=== PATIENT | male | born 1950 | race Caucasian/White ===

== ENCOUNTER 2021-01-24 19:19 | Inpatient (IN) | payer OTHER, SELFPAY ==
[2021-01-24] VITALS (29 sets, daily range): BP systolic 151–180; BP diastolic 76–93; PULSE 60–100; RESP 12–26; TEMP 36.3; O2SAT 96–100
--- NOTE | ~2021-01-24 | MR_ITS ---
EXAMINATION: MR brain/brain stem wo/w con DATE: 01/25/2021 10:22 INDICATION: Ataxia. TECHNIQUE: Magnetic resonance imaging (MRI) of the brain and brainstem was performed without and with 19 mL MultiHance intravenous contrast. Sequences included sagittal and axial T1-weighted FSE, axial diffusion-weighted FS EPI, axial T2*-weighted GRE, axial T2-weighted FLAIR Propeller, and axial T2-we ighted Propeller. Postcontrast sequences included axial and coronal T1-weighted FSE. Apparent diffusi on coefficient (ADC) maps were created. COMPARISON: Head CT 01/24/2021 FINDINGS: There are acute infarcts in the cerebellum bilaterally. There are scattered acute infarcts in the left sara, right thalamus, and bilateral temporal and occipital lobes. There is no intracrania l hemorrhage or abnormal mass lesion. There are scattered areas of nonspecific increased T2-weighted signal intensity in the cerebral white matter, which is within normal limits for the patient's age. T he ventricles are normal in size. There is cavum septum pellucidum and vergae. The orbits are normal. There is mucosal thickening in the paranasal sinuses. The mastoid air cells are normal. IMPRESSION: 1. Scattered acute infarcts involving the cerebellum, left sara, right thalamus, and bilateral tempor al and occipital lobes. Reviewed, dictated and finalized at location A. IMPRESSION: 1. Scattered acute infarcts involving the cerebellum, left sara, right thalamus , and bilateral temporal and occipital lobes.
--- NOTE | ~2021-01-24 | XR_ITS ---
XR chest 2V 01/24/2021 20:48 Indication: Hypertension. Asthma. Procedure: PA and lateral views of the chest Comparison: No prior studies for comparison. Findings: Left basilar atelectasis. Heart size normal. No focal pneumonia, edema, pleural effusion or pneumothorax. No acute osseous abnormality. Impression: 1: Left basilar atelectasis. Reviewed, dictated and finalized at location A. Impression: 1: Left basilar atelectasis.
--- NOTE | ~2021-01-24 | CT_ITS ---
EXAMINATION: CT brain wo con DATE: 01/24/2021 20:29 INDICATION: Left upper extremity numbness and dizziness TECHNIQUE: Computed tomography (CT) of the head was performed without intravenous contrast. The dose- length product was 681.00 mGy-cm. Automated exposure control and iterative reconstruction technique w ere employed. COMPARISON: None FINDINGS: There is a chronic left cerebellar infarction. Right parenchymal volume is normal for age. There are scattered mild periventricular and subcortical white matter changes, most likely related to small vessel ischemic disease (microangiopathy). No ventriculomegaly or midline shift. There is intr acranial atherosclerosis. Mild mucosal thickening of the ethmoid sinuses. Mastoids are pneumatized. N o depressed skull fractures. No acute intracranial hemorrhage or infarction. IMPRESSION: 1. No acute intracranial abnormality. 2: Chronic left cerebellar infarction. 3: Chronic age-related findings. Reviewed, dictated and finalized at location A.
--- NOTE | ~2021-01-24 | CT_ITS ---
EXAMINATION: CTA brain carotid DATE: 01/25/2021 10:42 INDICATION: Acute brain infarct. TECHNIQUE: Computed tomographic angiography (CTA) of the head was performed without and with 100 mL O mnipaque-350 intravenous contrast. CTA of the neck was performed with intravenous contrast. Automated exposure control and iterative reconstruction technique were employed. The dose-length product was 1 729.91 mGy-cm. Maximum intensity projection and volume rendered 3D-reconstructions were created by mynor morillo technologist on a separate workstation. COMPARISON: Brain MRI 01/25/2021 FINDINGS: HEAD CTA: There are acute infarcts in the left cerebellum and right temporal occipital region. There is no intracranial hemorrhage or abnormal mass lesion. The ventricles are normal in size. Cavum septu m callosum and vergae are noted. The orbits are normal. There is mucosal thickening in the paranasal sinuses. The mastoid air cells are normal. The vertebral arteries are codominant. There is no signifi cant stenosis of basilar artery or the posterior cerebral arteries. There is no significant stenosis of the intracranial internal carotid arteries or anterior or middle cerebral arteries. Anterior commu nicating artery is normal. Posterior communicating arteries are not identified. There is no aneurysm. NECK CTA: There are no pathologically enlarged lymph nodes. There is no significant stenosis of the v ertebral arteries. There is plaque in the proximal internal carotid arteries. There is 0% stenosis of the proximal right internal carotid artery relative to normal distal artery lumen diameter (NASCET c riteria). There is 0% stenosis of the proximal left internal carotid artery relative to normal distal artery lumen diameter. There is severe cervical spondylosis. IMPRESSION: 1. Acute infarcts in the left cerebellum and right temporal occipital region. 2. No aneurysm or significant intracranial arterial stenosis. 3. 0% stenosis of the proximal internal carotid arteries relative to normal distal artery lumen diame ters (NASCET criteria). Reviewed, dictated and finalized at location A. IMPRESSION: 1. Acute infarcts in the left cerebellum and right temporal occipital region. 2. No aneurysm or significant intracranial arterial stenosis. 3. 0% stenosis of the proximal internal carotid arteries relative to normal dis berny artery lumen diameters (NASCET criteria).
--- NOTE | 2021-01-24 19:57 | PC.NURSE ---
pt here c cousiin in room. pt reports he has not been feeling right and family in room notes that pt has been mumbling more lately, which his daughter also noticed as well. pt currently with clear speech and no noted deficits. skin pwd. placed on site monitor.
--- NOTE | 2021-01-24 20:00 | ECG_ITS ---
Measurements Intervals [place] Rate: 82 P: 5 ID: [id number] QRS: -14 QRSD: 96 T: -23 QT: 362 QTc: 425 Interpretive Statements SINUS RHYTHM WITH SINUS ARRHYTHMIA WITH FIRST DEGREE AV BLOCK VOLTAGE CRITERIA FOR LVH INFERIOR INFARCT, AGE INDETERMINATE BASELINE ARTIFACT- I, II, III, AVR, AVL, AVF ABNORMAL ECG Electronically Signed On 01-25-2021 7:40:33 CDT by Darvin Villela D.O.
--- NOTE | 2021-01-24 20:22 | ED.GENADULT ---
HPI - General Adult General Chief complaint: Unspecified Stated complaint: Feeling off-balance off Time Seen by Provider: 01/24/21 19:30 History of Present Illness HPI narrative: Patient is a 70-year-old male who presents ER with some vague symptoms beginning 01/20/2021. Reports he woke up that day when he was getting in the shower he felt very dizzy/on balance. No rotational dizziness/sweats/vomiting. Patient reports he has continued to have sensation of being off balance throughout the week. He also reports his left arm feels off like it is not his when he touches his head. He continues to have sensation in the arm but feels as if it is different than his right arm. Family feels his speech may be slightly less crisp like he has dry mouth. There is been no word searching or dysarthria. No falling. Denies headache/visual changes. No previous history of CVA. Related Data Home Medications Medication Instructions Recorded Confirmed amlodipine 10 mg PO DAILY 01/25/21 01/25/21 atorvastatin 20 mg PO DAILY 01/25/21 01/25/21 fluticasone propionate 2 spray INTRANASAL DAILY 01/25/21 01/25/21 lisinopril 40 mg PO DAILY 01/25/21 01/25/21 omeprazole 20 mg PO DAILY 01/25/21 01/25/21 Allergies Allergy/AdvReac Type Severity Reaction Status Date / Time Penicillins Allergy Unknown Verified 01/24/21 19:20 Review of Systems Review of Systems: All systems reviewed & are unremarkable except as noted in HPI and below Constitutional: Constitutional: Denies chills, Denies fever(s) and Denies headache(s) Eyes: Eyes: Denies diplopia and Denies loss of vision ENT: Denies vertigo, Denies dry mouth and Denies nasal congestion Cardiovascular: Cardiovascular: Denies chest pain and Denies rapid heart rate Respiratory: Respiratory: Denies cough and Denies dyspnea Neurologic: Denies confusion, Denies headache(s), Denies focal weakness, Denies Sensory deficit (Neuro), Reports paresthesias and Reports disequilibrium [facility] Past Medical History Medical History (Updated 01/25/21 @ 06:03 by Jose Lindsay MD) Allergic rhinitis CVA (cerebral vascular accident) 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 cerebellar CVA on CT scan 01/24/2021 Dyslipidemia Essential hypertension GERD (gastroesophageal reflux disease) Obesity White coat syndrome with hypertension Surgical History Surgical History (Updated 01/25/21 @ 03:08 by Antonietta Srinivasan DO) History of esophagogastroduodenoscopy (EGD) (~1979) Normal colonoscopy (~2018) Family History Family History (Updated 01/25/21 @ 03:12 by Antonietta Srinivasan DO) Father , age 72 Small cell lung cancer, Onset Age: 68 Cerebrovascular accident, Onset Age: 60 Mother , at age 97 Heart disease, Onset Age: 65 Sibling Heart disease, Onset Age: 63 Social History Social History (Updated 01/25/21 @ 03:18 by Antonietta Srinivasan DO) Social History: Patient is and lives alone. He has 3 children to daughters and 1 son. His oldest child is in their 50s. 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 He used to smoke between 2-3 packs of cigarettes per day and smoked for approximately 26 years but quit at least 15 years ago. He reports that he drinks too much alcohol. He drinks 2-316 oz cans of beer every other day. He started drinking alcohol after he gave up smoking. He denies any illicit substance use. Code status: Full code Surrogate decision maker: Marianna Dumont (cousin) Smoking packs per day: 2 Smoking cigarettes per day: 40.0 Years smoked: 26 Smoking pack-years: 52.00 Smoking status: Former smoker Tobacco type: cigarettes Smoking end date: 09/03/04 Alcohol intake: current Drinks per week: 6 Substance use: never Substance use type: does not use Gender identity (if verbalized by th
[2021-01-24 20:26] LABS: Basophils Percent Auto 0.4 % (0.2-1.2); Eosinophils Percent Auto 0.4 % (0-4.4); Hematocrit 45.5 % (42.0-52.0); Immature Granulocyte Absolute 0.02 K/mm3 (0.00-0.031); Immature Granulocyte Percent A 0.3 % (0-0.5); Lymphocytes Absolute Auto 1.22 K/mm3 (0.9-3.2); Lymphocytes Percent Auto 16.5 % (18.3-44.2); Mean Corpuscular Hemoglobin 31.6 pg (26-34); Mean Platelet Volume 9.7 fl (7.4-10.4); Monocytes Absolute Auto 0.5 K/mm3 (0.1-0.6); Monocytes Percent Auto 6.9 % (2.6-8.5); Neutrophils Absolute Auto 5.6 K/mm3 (1.3-6.7); Neutrophils Percent Auto 75.5 % (45.5-73.1); Platelet Count Result 246 k/mm3 (150-375); Red Blood Count 4.74 M/mm3 (4.6-6.20); Red Cell Distribution Width 12.6 % (11.5-14.5); White Blood Count 7.4 K/mm3 (4.5-10.0)
[2021-01-24 20:39] LABS: Anion Gap 10 mmol/L (8-16); Blood Urea Nitrogen 9 mg/dL (9-20); Calcium 10.5 mg/dL (8.4-10.2); Carbon Dioxide 30 mmol/L (22-30); Chloride 105 mmol/L (98-107); Estimated CRCL calculation 79 ml/min; Estimated Glomerular Filt Rate > 60; Glucose 103 mg/dL (75-110); INR 0.9; Partial Thromboplastin Time 24.2 SECONDS (22.3-36.8); Potassium 3.5 mmol/L (3.4-5.0); Prothrombin Time 12.7 Seconds (11.1-14.7); Sodium 145 mmol/L (137-145)
[2021-01-24 20:51] LABS: Troponin I 0.026 ng/mL (0.000-0.034)
[2021-01-24] MEDS: ASPIRIN 325 MG TABLET PO (22:51)
[2021-01-25] VITALS (14 sets, daily range): BP systolic 144–176; BP diastolic 68–90; PULSE 55–79; RESP 16–20; TEMP 36.5–36.8; O2SAT 93–100; BMI 36.6
--- NOTE | 2021-01-25 | ECHO_ITS ---
Patient Info Name: Serafin Yip Age: 70 years : 1950 Gender: Male Ht: 64 in Wt: 201 lbs BSA: 2.07 m2 HR: 72 bpm BP: 158 / 76 mmHg Heart Rhythm: Sinus Rhythm Technical Quality: Good Exam Date: 01/25/2021 8:51 AM Exam Location: [facility] Patient Status: Outpatient Admit Date: 01/24/2021 Staff Ordering Physician: Antonietta Srinivasan DO [employer]iscuit: Celi Peña RDCS Attending Provider: Rahel Zheng PA-C Referring Physician: Craig SMITH; Exam Type: CA echo doppler color flow Study Info Complete two-dimensional, color flow and Doppler transthoracic echocardiogram is performed. Summary 1. Complete two-dimensional, color flow and Doppler transthoracic echocardiogram is performed. 2. Normal LV size, mild LVH; normal LV systolic function, EF 55-60%; grade 1 diastolic dysfunction. Mild left atrial enlargement. Normal mitral valve structure, no significant MR; no mitral stenosis. Mild aortic valve calcification, mild aortic stenosis, JUSTIN 2.2 cm2. Unable to assess RVSP due to inadequate TR jet. Normal sinus rhythm. Left Ventricle Left ventricular chamber dimension is normal. Left ventricular systolic function is normal, estimated at 55-60%. There is mildly increased left ventricular wall thickness. The left ventricular diastolic function is grade I diastolic dysfunction. Right Ventricle Right ventricular chamber dimension is normal. Right ventricular systolic function is normal. Left Atria Left atrial chamber dimension is mildly enlarged. Right Atria Right atrial chamber dimension is normal. Aortic Valve There is mild aortic valve calcification. Pulmonic Valve The pulmonic valve is not well visualized. Mitral Valve The mitral valve has thickened leaflets. There is no mitral valve regurgitation. Tricuspid Valve The tricuspid valve leaflets are normal. Pericardium/Pleural The pericardium appears epicardial fat pad. Aorta The aortic root size at the sinus of Valsalva is normal. Left Ventricular Outflow Tract Name Value Normal LVOT 2D LVOT Diameter 2.4 cm LVOT Doppler LVOT Peak Gradient 3 mmHg LVOT Mean Gradient 1 mmHg LVOT VTI 18 cm LVOT VTI/AV VTI Ratio 0.5 LVOT Stroke Volume 78 ml LVOT CO 4.8 l/min LVOT CI 2.3 l/min/m2 Pulmonic Valve Name Value Normal PV Doppler PV Peak Gradient 3 mmHg Mitral Valve Name Value Normal MV Doppler MV Decel
--- NOTE | 2021-01-25 01:17 | PM.IMHP ---
H&P: HPI History of Present Illness Date/Time: 01/25/21 00:15 Chief Complaint: Not feeling right Narrative: 70-year-old male with past medical history of dyslipidemia, GERD and essential hypertension who presented to the ER with 5 days of not feeling right. He denies ever having symptoms similar to this or having history of CVA. He reports that he has been having some heaviness of his left hand in arm and has been feeling off balance as if he may fall. He reports that he was having trouble getting his left hand to do what he wanted to do starting on Wednesday. On Wednesday night he drank a couple of beers in then started throwing up until he had dry heaves. He slept most the day on Wednesday. On he still felt off balance. He reported that he was actually writing out of check a few days ago and was having trouble focusing his vision and could not tell if you had wrote the right thing down. He has never seen an eye doctor. He has not been having difficulty dropping things he denies any difficulty with speech or swallowing. He has not noticed any facial asymmetry. He denies any heaviness in his legs or sensation of numbness. He does have some decreased pinprick sensation on exam of the left upper extremity. He has been having an intermittent sub occipital headache for the last week that is mild in nature. The pain is described as aching and a 1/10 in intensity. He reports that he has a long history of hypertension for many years. He has a significant history of white coat hypertension. He reports that his blood pressures last week at home were in the 130s systolic. He has not missed any of his antihypertensive medications. He denies any palpitations or chest pain. He has not been any shortness of breath. He reports that he is relatively active in does his own yd work he reports that a little over a week ago he over exerted himself by mowing his lawn and then climbing up on to his roof to clean the gutters. When he went inside he was extremely hot it took him several hours to cool down. He denies any difficulty with urination, urinary frequency or hematuria. He has not had any hematochezia or melena. His last colonoscopy was about 4 years ago and was normal. With performed by Dr. Velasco. He has had multiple EGDs in the past due to and irritable stomach. He is on chronic PPI therapy. He takes a baby aspirin daily at home. He has been told for many years that he snores. He does not know if he has episodes of apnea. He has never been tested for sleep apnea. He denies daytime fatigue. The patient reports that he thinks he had COVID back in September of 2019 but did not get tested. After he recovered from the symptoms he went to his primary care provider's office where the nurse practitioner told him that he had a heart murmur. He has never had an echocardiogram. He denies dyspnea on exertion, orthopnea or paroxysmal nocturnal dyspnea. He has not been having any lower extremity swelling. Review of Systems Review of Systems: Narrative: 12 systems were reviewed with pertinent positives and negatives per HPI. Except as documented in the HPI, all other systems were reviewed and are negative. [facility] Past Medical History Medical History (Updated 01/25/21 @ 03:25 by Antonietta Srinivasan DO) Allergic rhinitis CVA (cerebral vascular accident) 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 cerebellar CVA on CT scan 01/24/2021 Dyslipidemia Essential hypertension GERD (gastroesophageal reflux disease) Obesity White coat syndrome with hypertension Surgical History Surgical History (Updated 01/25/21 @ 03:08 by Antonietta Srinivasan DO) History of esophagogastroduodenoscopy (EGD) (~1979) Normal colonoscopy (~2018) Family History Family History (Updated 01/25/21 @ 03:12 by Antonietta Srinivasan DO) Father , age 72 Small cell lung cancer, Onset Age: 68 Cerebrovascular accident, Onset Age: 60 Mother , at age 97 Heart disease, Onset Age: 65
[2021-01-25 08:45] LABS: Basophils Percent Auto 0.4 % (0.2-1.2); Eosinophils Absolute Auto 0.1 K/mm3 (0-0.3); Eosinophils Percent Auto 1.3 % (0-4.4); Hematocrit 43.4 % (42.0-52.0); Hemoglobin 14.5 g/dL (14.0-18.0); Immature Granulocyte Absolute 0.01 K/mm3 (0.00-0.031); Immature Granulocyte Percent A 0.1 % (0-0.5); Lymphocytes Absolute Auto 1.63 K/mm3 (0.9-3.2); Mean Corpuscular HGB Conc 33.4 g/dl (32-36); Mean Corpuscular Hemoglobin 31.9 pg (26-34); Mean Corpuscular Volume 95.6 fl (80-100); Mean Platelet Volume 9.9 fl (7.4-10.4); Monocytes Absolute Auto 0.4 K/mm3 (0.1-0.6); Monocytes Percent Auto 5.4 % (2.6-8.5); Neutrophils Absolute Auto 4.9 K/mm3 (1.3-6.7); Neutrophils Percent Auto 69.8 % (45.5-73.1); Platelet Count Result 242 k/mm3 (150-375); Red Blood Count 4.54 M/mm3 (4.6-6.20); Red Cell Distribution Width 12.8 % (11.5-14.5); White Blood Count 7.1 K/mm3 (4.5-10.0)
[2021-01-25 08:54] LABS: Anion Gap 11 mmol/L (8-16); Blood Urea Nitrogen 8 mg/dL (9-20); Calcium 10.2 mg/dL (8.4-10.2); Carbon Dioxide 27 mmol/L (22-30); Chloride 103 mmol/L (98-107); Cholesterol 177 mg/dL (0-200); Estimated CRCL calculation 91 ml/min; Estimated Glomerular Filt Rate > 60; Glucose 161 mg/dL (75-110); HDL Direct 64 mg/dL; Potassium 3.3 mmol/L (3.4-5.0); Sodium 141 mmol/L (137-145); Triglycerides 237 mg/dL (<150)
[2021-01-25 09:05] LABS: LDL Cholesterol Direct 64 mg/dL
[2021-01-25] MEDS: lisinopriL 20 MG TABLET 40 MG PO (09:29)
[2021-01-25] MEDS: ASPIRIN 325 MG TABLET PO (09:29)
[2021-01-25] MEDS: amLODIPine BESYLATE 5 MG TABLET 10 MG PO (09:29)
[2021-01-25] MEDS: ATORVASTATIN 20 MG TABLET PO (09:30)
[2021-01-25] MEDS: PANTOPRAZOLE 40 MG TABLET PO (09:30)
[2021-01-25 10:04] LABS: Magnesium 1.7 mg/dL (1.6-2.3)
[2021-01-25] MEDS: POTASSIUM CHLORIDE 20 MEQ TABLET 40 MEQ PO (10:49)
[2021-01-25] MEDS: FLUTICASONE PROPIONATE 0.05% NA SPR 16 GM BTL (*BKC) 2 SPRAY NASAL (10:49)
[2021-01-25] MEDS: FENOFIBRATE 160 MG TABLET PO (11:19)
[2021-01-25 12:13] LABS: Folic Acid > 20.0 ng/mL (2.76->20)
--- NOTE | 2021-01-25 12:43 | PM.IMPN ---
Progress Note: A&P Assessment and Plan (1) Acute CVA (cerebrovascular accident): Code(s): I63.9 - Cerebral infarction, unspecified Status: Acute Assessment and Plan: Patient is a 70-year-old man with a history of dyslipidemia, GERD, such hypertension, who presented to the emergency room with heaviness/numbness tingling to his left arm and leg, feeling off balance, worsening vision issues, trouble writing which occurred on 01/20/2021 when he woke up in the morning. The patient did not think anything of it but after symptoms did not improve he decided to come to the emergency room. Initial vitals showed he was afebrile, non tachycardic, respiratory rate 16, pulse ox 96% on room air, blood pressure elevated 180/80. Initial labs showed Normal CBC with differential, normal coag panel, normal BMP. No acute intracranial abnormality. Chronic left cerebellar infarct. The patient was admitted into the hospital for further evaluation for stroke workup, neurology consultation and evaluation with therapy. MRI showed Scattered acute infarcts involving the cerebellum, left sara, right thalamus, and bilateral temporal and occipital lobes. CTA Head and Neck showed No aneurysm or significant intracranial arterial stenosis. 0% stenosis of the proximal internal carotid arteries relative to normal distal artery lumen diameters (NASCET criteria). Echo showed Normal LV size, mild LVH; normal LV systolic function, EF 55-60%; grade 1 diastolic dysfunction. Mild left atrial enlargement. Normal mitral valve structure, no significant MR; no mitral stenosis. Mild aortic valve calcification, mild aortic stenosis, JUSTIN 2.2 cm2. Unable to assess RVSP due to inadequate TR jet. Normal sinus rhythm. FLP is well controlled, LDL <70, TG elevated at 237 and will start on Fenofibrate 160 mg daily, continue Statin. I talked to the neurologist Dr. Newby who recommended starting the patient on aspirin 325 mg daily, Decadron 4 mg IV q.6 and need for cardiology consultation due to possibility of his acute CVAs being caused by Untreated Afib/Flutter. Will not start Anticoagulation for 3-5 days for treatment of possible afib to prevent a hemorrhagic stroke. Continue Neuro Checks Q4hrs to ensure no worsening symptoms or issues from multiple strokes. PT and OT have evaluated him and state he is at his normal ADLs Continue monitoring. Appreciate cardiology and neurology's input. (2) Uncontrolled hypertension: Code(s): I10 - Essential (primary) hypertension Status: Acute Assessment and Plan: Most likely elevated due to acute strokes. Allow permissive hypertension in the setting of multiple acute strokes. Continue home medications. Continue monitoring to make adjustments if needed. (3) Snoring: Code(s): R06.83 - Snoring Status: Acute Assessment and Plan: Patient does have a significant history of snoring with across the posterior oropharynx. He has high risk for obstructive sleep apnea. Recommend following up with PCP for outpatient testing. (4) Dyslipidemia: Code(s): E78.5 - Hyperlipidemia, unspecified Status: Inactive Assessment and Plan: FLP is well controlled, LDL <70, TG elevated at 237 and will start on Fenofibrate 160 mg daily, continue Statin. Time Spent With Patient Time with patient: 25 - 35 minutes Subjective Date/time seen: 01/25/21 12:43 Interval history: Date of service 01/25/2021: The patient denies any worsening stroke symptoms. He came into the ER due to continued symptoms that would not resolve. He has been having some worsening vision changes, numbness/tingling and weakness to left arm and leg. It took him longer to fill out papers that at normally does which could have been from his vision or
[2021-01-25] MEDS: DEXAMETHASONE SOD PHOS INJ 4 MG/ML VIAL IV PUSH ×2 (13:21→18:33)
[2021-01-25] MEDS: ACETAMINOPHEN 325 MG TABLET 650 MG PO (19:30)
[2021-01-26] VITALS (12 sets, daily range): BP systolic 126–167; BP diastolic 60–84; PULSE 50–102; RESP 14–18; TEMP 36–36.4; O2SAT 95–97
[2021-01-26] MEDS: DEXAMETHASONE SOD PHOS INJ 4 MG/ML VIAL IV PUSH ×2 (00:20→05:46)
[2021-01-26] MEDS: ACETAMINOPHEN 325 MG TABLET 650 MG PO ×2 (00:29→20:18)
[2021-01-26] MEDS: hydrALAZINE HCL 20 MG/ML VIAL 10 MG IV PUSH (00:56)
[2021-01-26 05:01] LABS: Hematocrit 42.2 % (42.0-52.0); Hemoglobin 14.1 g/dL (14.0-18.0)
[2021-01-26 05:18] LABS: Anion Gap 9 mmol/L (8-16); Blood Urea Nitrogen 13 mg/dL (9-20); Calcium 10.8 mg/dL (8.4-10.2); Carbon Dioxide 26 mmol/L (22-30); Chloride 106 mmol/L (98-107); Estimated CRCL calculation 91 ml/min; Estimated Glomerular Filt Rate > 60; Glucose 138 mg/dL (75-110); Magnesium 1.7 mg/dL (1.6-2.3); Potassium 4.1 mmol/L (3.4-5.0); Sodium 141 mmol/L (137-145)
[2021-01-26 07:48] LABS: Hemoglobin A1C 5.6 % (<5.7)
[2021-01-26] MEDS: FLUTICASONE PROPIONATE 0.05% NA SPR 16 GM BTL (*BKC) 2 SPRAY NASAL (07:57)
[2021-01-26] MEDS: ASPIRIN 325 MG TABLET PO (07:57)
[2021-01-26] MEDS: FENOFIBRATE 160 MG TABLET PO (07:58)
[2021-01-26] MEDS: PANTOPRAZOLE 40 MG TABLET PO (07:58)
[2021-01-26] MEDS: lisinopriL 20 MG TABLET 40 MG PO (07:58)
[2021-01-26] MEDS: ATORVASTATIN 20 MG TABLET PO (07:58)
[2021-01-26] MEDS: amLODIPine BESYLATE 5 MG TABLET 10 MG PO (07:58)
--- NOTE | 2021-01-26 08:31 | PM.CNCAR ---
Assessment and Plan Assessment and plan (1) Acute CVA (cerebrovascular accident): Code(s): I63.9 - Cerebral infarction, unspecified Status: Acute Assessment and Plan: 70-year-old male with hypertension, dyslipidemia, GERD. Patient presented to hospital with 5 day history of not feeling well, some left arm paresthesia, unsteady gait. He is found to have acute CVA. No major motor deficits at present. EKG shows sinus rhythm. On telemetry, patient has been in sinus rhythm/sinus bradycardia with occasional PVCs. No known prior history of atrial fibrillation or flutter. Echocardiogram shows preserved LV systolic function, mild aortic stenosis. Brain MRI showed scattered acute infarcts involving the cerebellum, left sara, right thalamus, and bilateral temporal and occipital lobes. No significant carotid stenosis on CTA. -continue aspirin, statin. -continue amlodipine, lisinopril. Permissive hypertension for the time being as per Neurology. Eventual target blood pressure less than 130/80 mmHg. -patient will undergo transesophageal echocardiogram to evaluate for cardioembolic source for CVA. The primary team has also requested implantable cardiac catheterization technician to assess for paroxysmal atrial flutter or fibrillation. Benefits, risks and alternatives of the procedure were discussed with the patient, and he is willing to proceed with the procedures. -continue to monitor on telemetry History of Present Illness History of Present Illness Consult date/time: 01/26/21 08:31 Date of consult: 01/26/2021 Reason for consult: CVA, concern for atrial flutter, fibrillation Requesting physician: KIRA Mcginnis Chief complaint: Left arm numbness; disease, unsteady gait HPI: 70-year-old male with hypertension, dyslipidemia, GERD. [facility] with about 5 day history of not feeling, and with complaints of dizziness, unsteady gait and unusual sensation in the left arm. He also had some difficulty in speech. Patient denied any chest pain, shortness of breath, palpitations, syncope. He denies any known prior cardiac history except that he was told by his primary care physician that he has a murmur. He denies any history of atrial flutter or fibrillation. CT head showed no acute intracranial abnormality; chronic left cerebellar infarction. Subsequent brain MRI showed scattered acute infarcts involving the cerebellum, left sara, right thalamus, and bilateral temporal and occipital lobes. No significant carotid stenosis on CTA. Echocardiogram under personal evaluation showed normal LV systolic function, grade 1 diastolic dysfunction, mild aortic stenosis. Chest x-ray showed left basilar atelectasis. EKG on my personal evaluation shows sinus rhythm, first-degree AV block, inferior infarct, age undetermined. On telemetry, patient has been in sinus bradycardia, sinus rhythm, with occasional PVCs. No atrial fibrillation or flutter is seen. Reason For Visit: ataxia, stroke like symptoms Review of Systems Review of Systems: Narrative: General: Negative for fever, chills, fatigue Psychological: Negative for anxiety, depression Ophthalmic: negative for loss of vision ENT: Negative for epistaxis, headaches Allergy and immunology: Negative for hives, nasal congestion Hematologic and lymphatic: Negative for overt bleeding problems Endocrine: Negative for hot flashes, palpitations Respiratory: Negative for cough, hemoptysis Cardiovascular: Negative for chest pain, shortness of breath, leg swelling, palpitations, syncope Gastrointestinal: Negative for abdominal pain, nausea, vomiting, hematochezia Musculoskeletal: Negative for myalgia, joint pains Neurological: Positive for left arm numbness, which is improved Dermatological: Negative for rash, skin discoloration PMFSH Past Medical History Medical History Allergic rhinitis CVA (cerebral vascular accident) Evide
--- NOTE | 2021-01-26 10:35 | PM.IMPN ---
Progress Note: A&P Assessment and Plan (1) Acute CVA (cerebrovascular accident): Code(s): I63.9 - Cerebral infarction, unspecified Status: Acute Assessment and Plan: Patient is a 70-year-old man with a history of dyslipidemia, GERD, such hypertension, who presented to the emergency room with heaviness/numbness tingling to his left arm and leg, feeling off balance, worsening vision issues, trouble writing which occurred on 01/20/2021 when he woke up in the morning. The patient did not think anything of it but after symptoms did not improve he decided to come to the emergency room. Initial vitals showed he was afebrile, non tachycardic, respiratory rate 16, pulse ox 96% on room air, blood pressure elevated 180/80. Initial labs showed Normal CBC with differential, normal coag panel, normal BMP. No acute intracranial abnormality. Chronic left cerebellar infarct. The patient was admitted into the hospital for further evaluation for stroke workup, neurology consultation and evaluation with therapy. MRI showed Scattered acute infarcts involving the cerebellum, left sara, right thalamus, and bilateral temporal and occipital lobes. CTA Head and Neck showed No aneurysm or significant intracranial arterial stenosis. 0% stenosis of the proximal internal carotid arteries relative to normal distal artery lumen diameters (NASCET criteria). Echo showed Normal LV size, mild LVH; normal LV systolic function, EF 55-60%; grade 1 diastolic dysfunction. Mild left atrial enlargement. Normal mitral valve structure, no significant MR; no mitral stenosis. Mild aortic valve calcification, mild aortic stenosis, JUSTIN 2.2 cm2. Unable to assess RVSP due to inadequate TR jet. Normal sinus rhythm. FLP is well controlled, LDL <70, TG elevated at 237 and will start on Fenofibrate 160 mg daily, continue Statin. I talked to [facility] Neurologist national business director- Dr. Parsons, who recommends continuing PO Aspirin 325 mg daily, Discontinuing IV Decadron, and for further cardiac evaluation with possible Loop Recorder Placement. Talked to Dr. Griffin Cardiology, who evaluated the patient and is going to preform a JÚNIOR tomorrow 01/27/21 and if the JÚNIOR is normal, will place Loop Recorder. The patient understands and agrees with the plan. Continue Neuro Checks Q4hrs to ensure no worsening symptoms or issues from multiple strokes. PT and OT have evaluated him and state he is at his normal ADLs Continue monitoring. Appreciate cardiology and neurology's input. (2) Uncontrolled hypertension: Code(s): I10 - Essential (primary) hypertension Status: Acute Assessment and Plan: Most likely elevated due to acute strokes. Allow permissive hypertension in the setting of multiple acute strokes. BP stable, 135/63 this morning. Continue home medications. Continue monitoring to make adjustments if needed. (3) Snoring: Code(s): R06.83 - Snoring Status: Acute Assessment and Plan: Patient does have a significant history of snoring with across the posterior oropharynx. He has high risk for obstructive sleep apnea. Recommend following up with PCP for outpatient testing. (4) Dyslipidemia: Code(s): E78.5 - Hyperlipidemia, unspecified Status: Inactive Assessment and Plan: FLP is well controlled, LDL <70, TG elevated at 237 and will start on Fenofibrate 160 mg daily, continue Statin. Additional Plan Time Spent With Patient Time with patient: 25 - 35 minutes Subjective Date/time seen: 01/26/21 10:35 Interval history: Date of service 01/26/2021: The patient denies any worsening stroke symptoms. Denies any trouble with his speech, trouble swallowing, coughing with eating drinking. He denies any lightheadedness, dizziness, headache, fever, c
--- NOTE | 2021-01-26 16:51 | PC.NURSE ---
Pt asked publicity writer to add his OTC medications to his home medication list, pt states grabbed bottles of prescription medications but did not bring his OTC medications, Pt stated his OTC medications to publicity writer and medications list was updated.
[2021-01-27] VITALS (20 sets, daily range): BP systolic 108–154; BP diastolic 53–76; PULSE 50–75; RESP 12–23; TEMP 35.9–36.3; O2SAT 93–100
--- NOTE | 2021-01-27 10:45 | PC.NURSE ---
To Adjunct Instructor In Economics per Bed IV 20 LAC. Report given to Judit DAVIS and Mercedes RN.
--- NOTE | 2021-01-27 11:01 | WPDMODSED ---
Moderate Sedation Note-Pt Data Patient Data Allergies Allergy/AdvReac Type Severity Reaction Status Date / Time Penicillins Allergy Unknown Verified 01/24/21 19:20 Home Medications Medication Instructions Recorded Confirmed Type amlodipine 10 mg PO DAILY 01/25/21 01/25/21 History atorvastatin 20 mg PO DAILY 01/25/21 01/25/21 History fluticasone propionate 2 spray INTRANASAL DAILY 01/25/21 01/25/21 History lisinopril 40 mg PO DAILY 01/25/21 01/25/21 History omeprazole 20 mg PO DAILY 01/25/21 01/25/21 History flaxseed oil 1,000 mg PO DAILY 01/26/21 01/26/21 History garlic 500 mg PO DAILY 01/26/21 01/26/21 History multivit with [id number] [One 1 tablet PO DAILY 01/26/21 01/26/21 History Daily For Men] niacin 250 mg PO DAILY 01/26/21 01/26/21 History Current Medications: Active Medications Acetaminophen (Acetaminophen 325 Mg Tablet) 650 mg PO Q4H PRN PRN Reason: Mild Pain (1-3) or Fever Last Admin: 01/26/21 20:18 Dose: 650 mg Documented by: Hydrocodone Bitart/Acetaminophen (Hydrocodone/Acetaminophen (*Crx) 5-325 Mg Tablet) 1 tab PO Q4H PRN PRN Reason: Pain Rated 4-6 Amlodipine Besylate (Amlodipine Besylate 5 Mg Tablet) 10 mg PO DAILY [facility] Last Admin: 01/26/21 07:58 Dose: 10 mg Documented by: Aspirin (Aspirin 325 Mg Tablet) 325 mg PO DAILY@0800 [facility] Last Admin: 01/26/21 07:57 Dose: 325 mg Documented by: Atorvastatin Calcium (Atorvastatin 20 Mg Tablet) 20 mg PO DAILY [facility] Last Admin: 01/26/21 07:58 Dose: 20 mg Documented by: Calcium Carbonate (Calcium Carbonate (Tums) 500 Mg (200 Mg Elemental)) 200 mg PO Q6H PRN PRN Reason: Indigestion Fenofibrate (Fenofibrate 160 Mg Tablet) 160 mg PO DAILY [facility] Last Admin: 01/26/21 07:58 Dose: 160 mg Documented by: Fluticasone Propionate (Fluticasone Propionate 0.05% Na Spr 16 Gm Btl (*Bkc)) 2 spray NASAL DAILY [facility] Last Admin: 01/26/21 07:57 Dose: 2 spray Documented by: Hydralazine HCl (Hydralazine Hcl 20 Mg/Ml Vial) 10 mg IV PUSH Q4H PRN PRN Reason: SBP greater than 160 Last Admin: 01/26/21 00:56 Dose: 10 mg Documented by: Lisinopril (Lisinopril 20 Mg Tablet) 40 mg PO DAILY [facility] Last Admin: 01/26/21 07:58 Dose: 40 mg Documented by: Morphine Sulfate (Morphine Sulfate (*Crx) 4 Mg/Ml Inj) 4 mg IV PUSH Q2H PRN PRN Reason: Pain Rated 7-10 Ondansetron HCl (Ondansetron Inj 4 Mg/2 Ml Vial) 4 mg IV PUSH Q4H PRN PRN Reason: Nausea Pantoprazole Sodium (Pantoprazole 40 Mg Tablet) 40 mg PO DAILY [facility] Stop: 02/24/21 09:01 Last Admin: 01/26/21 07:58 Dose: 40 mg Documented by: Sedation/Anesthesia: No previous sedation/anesthesia problems (including family history). [facility] Past Medical History Medical History Allergic rhinitis CVA (cerebral vascular accident) 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 cerebellar CVA on CT scan 01/24/2021 Dyslipidemia Essential hypertension GERD (gastroesophageal reflux disease) Obesity White coat syndrome with hypertension Surgical History Surgical History History of esophagogastroduodenoscopy (EGD) (~1979) Normal colonoscopy (~2018) Family History Family History Father , age 72 Small cell lung cancer, Onset Age: 68 Cerebrovascular accident, Onset Age: 60 Mother , at age 97 Heart disease, Onset Age: 65 Sibling Heart disease, Onset Age: 63 Social History Social History Social History: Patient is and lives alone. He has 3 children to daughters and 1 son. His oldest child is in their 50s. 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 He used to smoke between 2-3 packs of cigarettes per day and smoked for approximately 26 ye
--- NOTE | 2021-01-27 11:01 | WPDHPUPDATE1 ---
History and Physical Update Update Date/Time: 01/27/21 11:01 History and Physical has been reviewed, including an updated exam of the patient. There are NO changes in the patient's condition. Risks, benefits, and alternatives have been discussed and questions answered. Patient agrees to proceed with procedure.
--- NOTE | 2021-01-27 11:38 | WPDTEECHO ---
JÚNIOR TransEsophageal Echocardiogram Date of procedure: 01/27/21 Findings: Date of procedure: 01/27/2021 INDICATION FOR PROCEDURE: CVA BRIEF CLINICAL HISTORY: 70-year-old male with hypertension, dyslipidemia, GERD. Patient presented to hospital with 5 day history of not feeling well, some left arm paresthesia, unsteady gait. He is found to have acute CVA. EKG showed sinus rhythm. On telemetry, patient has been in sinus rhythm/sinus bradycardia with occasional PVCs. No known prior history of atrial fibrillation or flutter. Echocardiogram shows preserved LV systolic function, mild aortic stenosis. Brain MRI showed scattered acute infarcts involving the cerebellum, left sara, right thalamus, and bilateral temporal and occipital lobes. No significant carotid stenosis on CTA. JÚNIOR was recommended to evaluate for cardioembolic source for CVA. Benefits, risks and alternatives of the procedure discussed with the patient. PROCEDURES PERFORMED: 1. Multiplane transesophageal echocardiography with color flow and Doppler assessment 2. Moderate sedation- CPT code 29102 SEDATION: Propofol 60 milligram IV in divided doses; start time 1110 , stop time 1129 , total qryl-[id number]-wcpt time 19 minutes; Jaz Hendricks RN was trained observer for moderate sedation. PROCEDURE: After obtaining informed consent, patient was brought to the chest Pain Center. She was given lidocaine gel, followed by 2 sprays of benzocaine spray. Bite block was placed. Patient was positioned in the left lateral position. After adequate sedation with propofol, transesophageal scope was advanced and multiplanar transesophageal echocardiography was performed with and without color flow and Doppler assessment. Patient's vitals were monitored throughout the procedure. Patient tolerated procedure well. There were no immediate procedure related complications. LEFT VENTRICLE: Mild LV enlargement, normal wall thickness; moderate to severe global LV systolic dysfunction, ejection fraction visually estimated at about 30-35%. Spontaneous echo contrast is seen in the LV cavity. No definite LV thrombus. RIGHT VENTRICLE: Normal size, mild systolic dysfunction. LEFT ATRIUM: Moderate severe enlargement, spontaneous echo contrast seen. No definite thrombus in the left atrial appendage. RIGHT ATRIUM: Normal size ATRIAL SEPTUM: Small PFO is seen on the color Doppler, however, on the agitated normal saline study, no passage of bubbles were seen from right to left atrium, possibly due to elevated left atrial pressures. MITRAL VALVE: Normal structure, trivial to mild MR. AORTIC VALVE: Mildly sclerotic, trileaflet aortic valve, trace AI. No significant restriction of leaflet mobility. TRICUSPID VALVE: Normal structure, trace TR, unable to assess RVSP due to inadequate TR jet. PULMONIC VALVE: Normal structure, trivial regurgitation PERICARDIUM: Normal, no significant pericardial effusion AORTA: Sinus of Valsalva 37 mm, ascending aorta 36 mm. RHYTHM: Sinus Conclusions: 1. Mild LV enlargement, normal wall thickness, moderate to severe LV systolic dysfunction, ejection fraction 30-35%; spontaneous echo contrast is seen in the LV cavity without definite thrombus. 2. Moderate to severe left atrial enlargement, no definite thrombus in the left atrial appendage; however, spontaneous echo contrast is seen in the left atrium. Small PFO on color Doppler. 3. Normal mitral valve structure, trace to mild MR. 4. Sclerotic aortic valve, trivial AI. 5. Sinus rhythm/sinus bradycardia PLAN/RECOMMENDATION: Patient's echocardiogram showed moderate severe LV systolic dysfunction with spontaneous echo contrast predominantly in the left atrium and left ventricular. Due to significant LV systolic dysfunction, further workup including ischemic workup will be pursued. Since patient already had CVA which appeared to be embolic, he will need anticoagulation.
--- NOTE | 2021-01-27 11:57 | PM.IMPN ---
Progress Note: A&P Assessment and Plan (1) Acute CVA (cerebrovascular accident): Code(s): I63.9 - Cerebral infarction, unspecified Status: Acute Assessment and Plan: Patient is a 70-year-old man with a history of dyslipidemia, GERD, such hypertension, who presented to the emergency room with heaviness/numbness tingling to his left arm and leg, feeling off balance, worsening vision issues, trouble writing which occurred on 01/20/2021 when he woke up in the morning. The patient did not think anything of it but after symptoms did not improve he decided to come to the emergency room. Initial vitals showed he was afebrile, non tachycardic, respiratory rate 16, pulse ox 96% on room air, blood pressure elevated 180/80. Initial labs showed Normal CBC with differential, normal coag panel, normal BMP. No acute intracranial abnormality. Chronic left cerebellar infarct. The patient was admitted into the hospital for further evaluation for stroke workup, neurology consultation and evaluation with therapy. MRI showed Scattered acute infarcts involving the cerebellum, left sara, right thalamus, and bilateral temporal and occipital lobes. CTA Head and Neck showed No aneurysm or significant intracranial arterial stenosis. 0% stenosis of the proximal internal carotid arteries relative to normal distal artery lumen diameters (NASCET criteria). Echo showed Normal LV size, mild LVH; normal LV systolic function, EF 55-60%; grade 1 diastolic dysfunction. Mild left atrial enlargement. Normal mitral valve structure, no significant MR; no mitral stenosis. Mild aortic valve calcification, mild aortic stenosis, JUSTIN 2.2 cm2. Unable to assess RVSP due to inadequate TR jet. Normal sinus rhythm. FLP is well controlled, LDL <70, TG elevated at 237 and will start on Fenofibrate 160 mg daily, continue Statin. I talked to [facility] Neurologist ergonomics engineer- Dr. Parsons, who recommends continuing PO Aspirin 325 mg daily, Discontinuing IV Decadron, and for further cardiac evaluation with possible Loop Recorder Placement. Talked to Dr. Griffin Cardiology, who evaluated the patient and is going to preform a JÚNIOR today 01/27/21 and if the JÚNIOR is normal, will place Loop Recorder. The patient understands and agrees with the plan. Continue Neuro Checks Q4hrs to ensure no worsening symptoms or issues from multiple strokes. PT and OT have evaluated him and state he is at his normal ADLs Continue monitoring. Appreciate cardiology and neurology's input. (2) Uncontrolled hypertension: Code(s): I10 - Essential (primary) hypertension Status: Acute Assessment and Plan: Most likely elevated due to acute strokes. Allow permissive hypertension in the setting of multiple acute strokes. BP stable, this morning 108/57. Continue home medications. Continue monitoring to make adjustments if needed. (3) Snoring: Code(s): R06.83 - Snoring Status: Acute Assessment and Plan: Patient does have a significant history of snoring with across the posterior oropharynx. He has high risk for obstructive sleep apnea. Recommend following up with PCP for outpatient testing. (4) Dyslipidemia: Code(s): E78.5 - Hyperlipidemia, unspecified Status: Inactive Assessment and Plan: FLP is well controlled, LDL <70, TG elevated at 237 and will start on Fenofibrate 160 mg daily, continue Statin. Additional Plan Subjective Date/time seen: 01/27/21 11:57 Interval history: Date of service 01/27/2021: The patient denies any worsening stroke symptoms. Denies any trouble with his speech, trouble swallowing, coughing with eating drinking. He denies any lightheadedness, dizziness, headache, fever, chills, nausea, vomiting, abdominal pain, diarrhea, constipation,
--- NOTE | 2021-01-27 12:00 | PC.NURSE ---
Returned from Wire Spring Relay Adjuster. Report received from Judit DAVIS.
[2021-01-27] MEDS: ASPIRIN 325 MG TABLET PO (12:26)
[2021-01-27] MEDS: amLODIPine BESYLATE 5 MG TABLET 10 MG PO (12:27)
[2021-01-27] MEDS: FENOFIBRATE 160 MG TABLET PO (12:27)
[2021-01-27] MEDS: ATORVASTATIN 20 MG TABLET PO (12:27)
[2021-01-27] MEDS: lisinopriL 20 MG TABLET 40 MG PO (12:27)
[2021-01-27] MEDS: PANTOPRAZOLE 40 MG TABLET PO (12:27)
[2021-01-27] MEDS: SPIRONOLACTONE 25 MG TABLET PO (12:31)
[2021-01-27] MEDS: ENOXAPARIN 100 MG/ML SYRINGE 97 MG SUB-Q ×2 (12:31→21:59)
[2021-01-27] MEDS: CALCIUM CARBONATE (TUMS) 500 MG (200 MG ELEMENTAL) PO (21:57)
[2021-01-28] VITALS (29 sets, daily range): BP systolic 127–175; BP diastolic 56–96; PULSE 46–76; RESP 13–21; TEMP 36.1–36.6; O2SAT 94–98
[2021-01-28 05:01] LABS: Hemoglobin 13.6 g/dL (14.0-18.0); Mean Corpuscular HGB Conc 33.2 g/dl (32-36); Mean Corpuscular Hemoglobin 31.4 pg (26-34); Mean Corpuscular Volume 94.7 fl (80-100); Mean Platelet Volume 9.9 fl (7.4-10.4); Platelet Count Result 244 k/mm3 (150-375); Red Blood Count 4.33 M/mm3 (4.6-6.20); Red Cell Distribution Width 12.8 % (11.5-14.5); White Blood Count 12.3 K/mm3 (4.5-10.0)
[2021-01-28 05:15] LABS: INR 0.9; Prothrombin Time 12.8 Seconds (11.1-14.7)
[2021-01-28 05:17] LABS: Partial Thromboplastin Time 31.1 SECONDS (22.3-36.8)
[2021-01-28 05:20] LABS: Anion Gap 9 mmol/L (8-16); Blood Urea Nitrogen 21 mg/dL (9-20); Carbon Dioxide 26 mmol/L (22-30); Chloride 106 mmol/L (98-107); Estimated CRCL calculation 81 ml/min; Estimated Glomerular Filt Rate > 60; Glucose 97 mg/dL (75-110); Sodium 141 mmol/L (137-145)
[2021-01-28 08:14] LABS: Basophils Percent Auto 0.3 % (0.2-1.2); Eosinophils Absolute Auto 0.1 K/mm3 (0-0.3); Eosinophils Percent Auto 0.5 % (0-4.4); Immature Granulocyte Absolute 0.03 K/mm3 (0.00-0.031); Immature Granulocyte Percent A 0.2 % (0-0.5); Lymphocytes Absolute Auto 2.46 K/mm3 (0.9-3.2); Lymphocytes Percent Auto 20.4 % (18.3-44.2); Monocytes Absolute Auto 0.9 K/mm3 (0.1-0.6); Monocytes Percent Auto 7.5 % (2.6-8.5); Neutrophils Absolute Auto 8.6 K/mm3 (1.3-6.7); Neutrophils Percent Auto 71.1 % (45.5-73.1)
[2021-01-28] MEDS: FLUTICASONE PROPIONATE 0.05% NA SPR 16 GM BTL (*BKC) 2 SPRAY NASAL (08:26)
[2021-01-28] MEDS: ASPIRIN 325 MG TABLET PO (08:26)
--- NOTE | 2021-01-28 09:26 | WPDNEURCNPN ---
Assessment and Plan Additional Plan possibly shower of emboli more so in the posterior circulation distribution initially received only aspirin Decadron was given for the possibility of impending posterior fossa edema which has been discontinued subsequent to the [facility] consultation patient will need the anticoagulation therapy in the long run along with the physical therapy and rehab Consult date: 01/28/21 Time Seen: 09:00 HPI: Serafin Yip is a 70 year old male admitted to the hospital for the complaints of not feeling right in addition to the ongoing history of 1. Dyslipidemia 2. GERD 3. Hypertension on initial visit to the emergency room he reported that he never had such symptoms before he complained of heaviness of his left hand and left upper extremity and also complained of feeling imbalanced he was experiencing trouble getting his left hand to do what he wanted to starting on Wednesday he drank couple of beers on Wednesday and started throwing up up until he had dry heaves on he felt of balance he also reported that few days ago he was writing checks and had difficulties in focusing his vision he has never seen any eye physician and has not been having difficulties in dropping things, difficulties in speech or swallowing he did complain of decreased pinprick sensation on his left upper extremity and intermittent suboccipital headache for the last week of mild degree he has long history of hypertension for several years he has been taking his medications regularly he gave no history of any other generalized symptomatology though he has undergone multiple EGDs in the past due to irritable stomach and is on chronic PPI . also reported that he probably had COVID in September of 2019 though he was not tested. Evaluation up until now includes routine lab studies except mild leukocytosis lately chronic left cerebellar infarct on the initial CT scan of the head left basilar atelectasis on x-ray of the chest, mild left atrial enlargement with mild aortic valve calcification and aortic stenosis on echocardiogram brain MRI revealing scattered acute infarcts involving cerebellum left sara right thalamus and bilateral temporal and occipital lobes and CTA with acute infarct in the left cerebellum and right temporal occipital region. he was continued on aspirin the transesophageal echocardiogram documented mild left ventricular enlargement moderate to severe left ventricular systolic dysfunction with ejection fraction of 30 to 35% and moderate to severe left atrial enlargement no thrombus in the left atrial appendage however spontaneous echo contrast seen in the left atrium with small PFO on color Doppler Review of Systems Review of Systems: All systems reviewed & are unremarkable except as noted in HPI and below PMFSH Past Medical History Medical History Allergic rhinitis CVA (cerebral vascular accident) 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 cerebellar CVA on CT scan 01/24/2021 Dyslipidemia Essential hypertension GERD (gastroesophageal reflux disease) Obesity White coat syndrome with hypertension Surgical History Surgical History History of esophagogastroduodenoscopy (EGD) (~1979) Normal colonoscopy (~2018) Family History Family History Father , age 72 Small cell lung cancer, Onset Age: 68 Cerebrovascular accident, Onset Age: 60 Mother , at age 97 Heart disease, Onset Age: 65 Sibling Heart disease, Onset Age: 63 Social History Social History Social History: Patient is and lives alone. He has 3 children to daughters and 1 son. His oldest child is in their 50s. 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
--- NOTE | 2021-01-28 12:41 | WPDMODSED ---
Moderate Sedation Note-Pt Data Patient Data Allergies Allergy/AdvReac Type Severity Reaction Status Date / Time Penicillins Allergy Unknown Verified 01/24/21 19:20 Home Medications Medication Instructions Recorded Confirmed Type amlodipine 10 mg PO DAILY 01/25/21 01/25/21 History atorvastatin 20 mg PO DAILY 01/25/21 01/25/21 History fluticasone propionate 2 spray INTRANASAL DAILY 01/25/21 01/25/21 History lisinopril 40 mg PO DAILY 01/25/21 01/25/21 History omeprazole 20 mg PO DAILY 01/25/21 01/25/21 History flaxseed oil 1,000 mg PO DAILY 01/26/21 01/26/21 History garlic 500 mg PO DAILY 01/26/21 01/26/21 History multivit with shw-FB-sojfhous [One 1 tablet PO DAILY 01/26/21 01/26/21 History Daily For Men] niacin 250 mg PO DAILY 01/26/21 01/26/21 History Current Medications: Active Medications Acetaminophen (Acetaminophen 325 Mg Tablet) 650 mg PO Q4H PRN PRN Reason: Mild Pain (1-3) or Fever Last Admin: 01/26/21 20:18 Dose: 650 mg Documented by: Hydrocodone Bitart/Acetaminophen (Hydrocodone/Acetaminophen (*Crx) 5-325 Mg Tablet) 1 tab PO Q4H PRN PRN Reason: Pain Rated 4-6 Aspirin (Aspirin 325 Mg Tablet) 325 mg PO DAILY@0800 [facility] Last Admin: 01/28/21 08:26 Dose: 325 mg Documented by: Atorvastatin Calcium (Atorvastatin 20 Mg Tablet) 20 mg PO DAILY [facility] Last Admin: 01/28/21 08:26 Dose: Not Given Documented by: Calcium Carbonate (Calcium Carbonate (Tums) 500 Mg (200 Mg Elemental)) 200 mg PO Q6H PRN PRN Reason: Indigestion Last Admin: 01/27/21 21:57 Dose: 200 mg Documented by: Enoxaparin Sodium (Enoxaparin 100 Mg/Ml Syringe) 97 mg SUB-Q Q12HR [facility] Last Admin: 01/28/21 08:18 Dose: Not Given Documented by: Fenofibrate (Fenofibrate 160 Mg Tablet) 160 mg PO DAILY [facility] Last Admin: 01/28/21 08:26 Dose: Not Given Documented by: Fluticasone Propionate (Fluticasone Propionate 0.05% Na Spr 16 Gm Btl (*Bkc)) 2 spray NASAL DAILY [facility] Last Admin: 01/28/21 08:26 Dose: 2 spray Documented by: Hydralazine HCl (Hydralazine Hcl 20 Mg/Ml Vial) 10 mg IV PUSH Q4H PRN PRN Reason: SBP greater than 160 Last Admin: 01/26/21 00:56 Dose: 10 mg Documented by: Lisinopril (Lisinopril 20 Mg Tablet) 40 mg PO DAILY [facility] Last Admin: 01/28/21 08:26 Dose: Not Given Documented by: Morphine Sulfate (Morphine Sulfate (*Crx) 4 Mg/Ml Inj) 4 mg IV PUSH Q2H PRN PRN Reason: Pain Rated 7-10 Ondansetron HCl (Ondansetron Inj 4 Mg/2 Ml Vial) 4 mg IV PUSH Q4H PRN PRN Reason: Nausea Pantoprazole Sodium (Pantoprazole 40 Mg Tablet) 40 mg PO DAILY [facility] Stop: 02/24/21 09:01 Last Admin: 01/28/21 08:26 Dose: Not Given Documented by: Spironolactone (Spironolactone 25 Mg Tablet) 25 mg PO QAM [facility] Last Admin: 01/28/21 08:26 Dose: Not Given Documented by: Sedation/Anesthesia: No previous sedation/anesthesia problems (including family history). [facility] Past Medical History Medical History Allergic rhinitis CVA (cerebral vascular accident) 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 cerebellar CVA on CT scan 01/24/2021 Dyslipidemia Essential hypertension GERD (gastroesophageal reflux disease) Obesity White coat syndrome with hypertension Surgical History Surgical History History of esophagogastroduodenoscopy (EGD) (~1979) Normal colonoscopy (~2018) Family History Family History Father , age 72 Small cell lung cancer, Onset Age: 68 Cerebrovascular accident, Onset Age: 60 Mother , at age 97 Heart disease, Onset Age: 65 Sibling Heart disease, Onset Age: 63 Social History Social History Social History: Patient is and lives alone. He has 3 children to daughters and 1 son. His oldest child is in their 50s. 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
--- NOTE | 2021-01-28 12:55 | PC.NURSE ---
Patient to biology laboratory assistant via bed.
--- NOTE | 2021-01-28 13:56 | WPDCARDPROC ---
Cardiac Cath Procedure Note Date of procedure:: 01/28/21 Performing physician:: Mamadou Griffin MD Procedure Procedure note:: CARDIAC CATHETERIZATION AND PERCUTANEOUS CORONARY INTERVENTION REPORT DATE OF PROCEDURE: 01/28/2021 INDICATION FOR PROCEDURE: CHF with reduced ejection fraction BRIEF CLINICAL HISTORY: 70-year-old male with hypertension, dyslipidemia, GERD. Patient presented to [facility] with 5 day history of not feeling well, some left arm paresthesia, unsteady gait. He was found to have acute CVA. EKG showed sinus rhythm. No known prior history of atrial fibrillation or flutter. surface echocardiogram showed preserved LV systolic function, mild aortic stenosis. Brain MRI showed scattered acute infarcts involving the cerebellum, left sara, right thalamus, and bilateral temporal and occipital lobes. No significant carotid stenosis on CTA. JÚNIOR was performed on 01/27/2021 to evaluate for cardioembolic source for CVA. Patient's JÚNIOR showed moderate severe LV systolic dysfunction with ejection fraction 30-35% with spontaneous echo contrast in the cardiac chambers, predominantly in the LV and LA. Due to patient's LV systolic dysfunction, which was significantly worse compared to his recent echocardiogram, patient was brought to the cardiac catheterization lab today to rule out significant obstructive CAD. Benefits and risks of the procedure were discussed with the patient in depth, and informed consent was obtained prior to the procedure. Risks of the procedure include but are not limited to vascular complications including groin hematoma, retroperitoneal bleed, vessel perforation; periprocedural [place], cardiac arrhythmias, stroke, contrast induced nephropathy, and . After discussing all the benefits, risks and alternatives, patient was willing to proceed with the procedure. PROCEDURES PERFORMED: 1. Selective left and right coronary angiogram 2. Attempted Percutaneous coronary intervention- attempted PCI subtotal occlusion distal RCA 3. Moderate sedation-CPT code 84920 MODERATE SEDATION: Midazolam 1 mg; fentanyl 25 mcg. Start time 1319 , Stop time 1354 ; Total yicz-oq-xylg time 35 minutes; Layla Maldonado RN was trained observer for moderate sedation. ACCESS SITE: Right common femoral artery and right common femoral vein. Staff was unable to get peripheral venous access, therefore, femoral venous access was taken for IV fluids and IV medications. PROCEDURE NOTE: After obtaining informed consent, patient was brought to catheterization lab and prepped and draped in a usual sterile manner. After local anesthesia with lidocaine, right common femoral artery access was taken with micropuncture needle followed by insertion of a 5 Emirati sheath . Right common femoral venous access was taken with micropuncture needle followed by insertion of a 4 Emirati sheath. Selective left and right coronary angiogram was performed using 5 Emirati JL5 and JR4 catheters respectively. Orthogonal views were taken . Left ventriculogram was not performed. FINDINGS: LEFT MAIN CORONARY: the left main coronary artery is a large caliber, short vessel, no significant focal stenosis. The vessel bifurcates into LAD and left circumflex branches. LEFT ANTERIOR DESCENDING ARTERY: The LAD is a medium caliber vessel with minor irregularities in the proximal segment, tapers distally, becomes tortuous and reaches the LV apex. Diagonal branches are small caliber vessels. LEFT CIRCUMFLEX ARTERY: The LCX is a medium caliber vessel, gives rise to small to medium-sized OM1 and OM2 branches, and a medium to large caliber OM3 branch. Proximal LCX has eccentric 30-40% stenosis. RIGHT CORONARY ARTERY: medium caliber vessel with mild diffuse calcification and minor irregularities in the proximal-mid segment; distal segment has complex, eccentric, about 95% calcific stenosis. RPDA is a diminutive branch; RPL 1-RPL 3 branches are small to medium caliber vessels. LEFT VENTRI
--- NOTE | 2021-01-28 15:31 | PM.IMPN ---
Progress Note: A&P Assessment and Plan (1) Acute CVA (cerebrovascular accident): Code(s): I63.9 - Cerebral infarction, unspecified Status: Acute Assessment and Plan: Patient is a 70-year-old man with a history of dyslipidemia, GERD, such hypertension, who presented to the emergency room with heaviness/numbness tingling to his left arm and leg, feeling off balance, worsening vision issues, trouble writing which occurred on 01/20/2021 when he woke up in the morning. The patient did not think anything of it but after symptoms did not improve he decided to come to the emergency room. Initial vitals showed he was afebrile, non tachycardic, respiratory rate 16, pulse ox 96% on room air, blood pressure elevated 180/80. Initial labs showed Normal CBC with differential, normal coag panel, normal BMP. No acute intracranial abnormality. Chronic left cerebellar infarct. The patient was admitted into the hospital for further evaluation for stroke workup, neurology consultation and evaluation with therapy. MRI showed Scattered acute infarcts involving the cerebellum, left sara, right thalamus, and bilateral temporal and occipital lobes. CTA Head and Neck showed No aneurysm or significant intracranial arterial stenosis. 0% stenosis of the proximal internal carotid arteries relative to normal distal artery lumen diameters (NASCET criteria). Echo showed Normal LV size, mild LVH; normal LV systolic function, EF 55-60%; grade 1 diastolic dysfunction. Mild left atrial enlargement. Normal mitral valve structure, no significant MR; no mitral stenosis. Mild aortic valve calcification, mild aortic stenosis, JUSTIN 2.2 cm2. Unable to assess RVSP due to inadequate TR jet. Normal sinus rhythm. FLP is well controlled, LDL <70, TG elevated at 237 and will start on Fenofibrate 160 mg daily, continue Statin. Talked to Dr. Griffin Cardiology, who evaluated the patient preformed a SCOOTER 01/27/21 showing pooling of blood in his heart which could have formed clots and cause his stroke to occur. He also found the patient's EF on the SCOOTER was moderately to severely reduced 30-35%. Dr. Griffin will perform a cardiac catheterization today for further evaluation on his reduced EF. Continue Neuro Checks Q4hrs to ensure no worsening symptoms or issues from multiple strokes. PT and OT have evaluated him and state he is at his normal ADLs Continue monitoring. Appreciate cardiology and neurology's input. (2) Systolic congestive heart failure: Code(s): I50.20 - Unspecified systolic (congestive) heart failure Status: Acute Assessment and Plan: Scooter showed the patient has moderate to severe systolic congestive heart failure with an EF of 30-35%. Dr. Griffin is going to preform a cardiac catheterization today for further evaluation of the cause of his reduced EF. Patient's amlodipine was discontinued per Cardiology. Patient was continued on lisinopril and started on spironolactone for his reduced EF. Continue monitoring volume status, blood pressure Patient is euvolemic at this time Continue monitoring. Cardiology's input is greatly appreciated. (3) Uncontrolled hypertension: Code(s): I10 - Essential (primary) hypertension Status: Acute Assessment and Plan: Most likely elevated due to acute strokes. Allow permissive hypertension in the setting of multiple acute strokes. BP stable, this morning 110/53 prior to cardiac cath Continue home medications. Continue monitoring to make adjustments if needed. (4) Snoring: Code(s): R06.83 - Snoring Status: Acute Assessment and Plan: Patient does have a significant history of snoring with across the posterior oropharynx. He has high risk for obstructive sleep apnea. Recommend following up with PCP for outpatient testing.
[2021-01-28] MEDS: lisinopriL 20 MG TABLET 40 MG PO (17:27)
--- NOTE | 2021-01-28 18:58 | PC.NURSE ---
Patient returned from [facility] by bed.
[2021-01-28] MEDS: SODIUM CHLORIDE 0.9% IV 1,000 ML 125 ML IV CONT (19:00)
[2021-01-28] MEDS: ACETAMINOPHEN 325 MG TABLET 650 MG PO (21:56)
[2021-01-29] VITALS: PULSE 82
[2021-01-29 02:00] VITALS: BP 133/71; PULSE 56; RESP 18; TEMP 36.8; O2SAT 97
[2021-01-29 04:00] VITALS: PULSE 46
[2021-01-29 05:46] LABS: Hematocrit 40.7 % (42.0-52.0); Hemoglobin 13.5 g/dL (14.0-18.0); Mean Corpuscular HGB Conc 33.2 g/dl (32-36); Mean Corpuscular Hemoglobin 31.5 pg (26-34); Mean Corpuscular Volume 94.9 fl (80-100); Mean Platelet Volume 10.3 fl (7.4-10.4); Platelet Count Result 237 k/mm3 (150-375); Red Blood Count 4.29 M/mm3 (4.6-6.20); Red Cell Distribution Width 12.6 % (11.5-14.5); White Blood Count 7.2 K/mm3 (4.5-10.0)
[2021-01-29 05:53] LABS: Anion Gap 10 mmol/L (8-16); Blood Urea Nitrogen 17 mg/dL (9-20); Calcium 9.7 mg/dL (8.4-10.2); Carbon Dioxide 25 mmol/L (22-30); Chloride 106 mmol/L (98-107); Estimated CRCL calculation 81 ml/min; Estimated Glomerular Filt Rate > 60; Glucose 103 mg/dL (75-110); Potassium 3.5 mmol/L (3.4-5.0); Sodium 141 mmol/L (137-145)
[2021-01-29 06:00] VITALS: BP 126/63; PULSE 50; RESP 18; TEMP 36.3; O2SAT 97
[2021-01-29 08:00] VITALS: BP 133/67; PULSE 50; PULSE 68; RESP 18; TEMP 36.4; O2SAT 95
[2021-01-29] MEDS: RIVAROXABAN 20 MG TABLET PO (09:00)
[2021-01-29] MEDS: PANTOPRAZOLE 40 MG TABLET PO (09:00)
[2021-01-29] MEDS: FLUTICASONE PROPIONATE 0.05% NA SPR 16 GM BTL (*BKC) 2 SPRAY NASAL (09:00)
[2021-01-29] MEDS: ATORVASTATIN 40 MG TABLET 80 MG PO (09:00)
[2021-01-29] MEDS: SPIRONOLACTONE 25 MG TABLET PO (09:00)
[2021-01-29] MEDS: CLOPIDOGREL BISULFATE 75 MG TABLET PO (09:00)
[2021-01-29] MEDS: FENOFIBRATE 160 MG TABLET PO (09:00)
[2021-01-29] MEDS: PHARMACIST COMMUNICATION ORDER 1 EACH XX (09:01)
--- NOTE | 2021-01-29 11:02 | PM.PNCARD ---
Progress Note: A&P Assessment and Plan (1) Acute CVA (cerebrovascular accident): Code(s): I63.9 - Cerebral infarction, unspecified Status: Acute Assessment and Plan: 70-year-old male with hypertension, dyslipidemia, GERD. Patient presented to hospital with 5 day history of not feeling well, some left arm paresthesia, unsteady gait. He is found to have acute CVA. No major motor deficits at present. EKG shows sinus rhythm. On telemetry, patient has been in sinus rhythm/sinus bradycardia with occasional PVCs. No known prior history of atrial fibrillation or flutter. Echocardiogram shows preserved LV systolic function, mild aortic stenosis. Brain MRI showed scattered acute infarcts involving the cerebellum, left sara, right thalamus, and bilateral temporal and occipital lobes. No significant carotid stenosis on CTA. Continue aspirin, statin, blood pressure control with spironolactone, lisinopril (2) Systolic congestive heart failure: Code(s): I50.20 - Unspecified systolic (congestive) heart failure Status: Acute Assessment and Plan: Continue current regimen. Potassium is low normal. Will give potassium chloride 40 mEq p.o. x1 (3) Uncontrolled hypertension: Code(s): I10 - Essential (primary) hypertension Status: Acute Assessment and Plan: Continue current antihypertensive regimen since multiple adjustments have been made. Will likely need further adjustments as an outpatient (4) Chronic anticoagulation: Code(s): Z79.01 - terminal operator (current) use of anticoagulants Status: Acute Assessment and Plan: At least short-term anticoagulation is warranted. Subjective Date/time seen: 01/29/21 11:02 Interval history: 70-year-old admitted for stroke-like symptoms. Date of service 0 01/29/2021: No chest pain, shortness of breath. No groin pain. Anxious to go home Review of Systems Review of Systems: All systems reviewed & are unremarkable except as noted in HPI and below Constitutional: Constitutional: Denies weakness Eyes: Eyes: Denies blurry vision ENT: Reports Normal hearing present Cardiovascular: Cardiovascular: Denies chest pain Respiratory: Respiratory: Denies dyspnea Gastrointestinal: Gastrointestinal: Denies abdominal pain Genitourinary: Genitourinary: Denies dysuria Musculoskeletal: Musculoskeletal: Denies neck pain Integumentary/Breasts: Skin/Breast: Denies dry skin Neurologic: Denies headache(s) Psychiatric: Psychiatric: Denies behavioral changes Endocrine: Endocrine: Denies change in body appearance Hematologic/Lymphatic: Hematologic/Lymphatic: Denies easy bleeding Allergic/Immunologic: Allergic/Immunologic: Denies GI upset with certain foods Exam Narrative: Exam Narrative: PHYSICAL EXAMINATION: GENERAL: Alert, oriented, no acute distress MENTAL STATUS: Anxious EYES: Extraocular movements intact, no pallor EARS: External ears appear normal, hearing grossly normal NOSE: Normal and patent, no discharge MOUTH: Mucous membranes moist, tongue normal NECK: Supple, no JVD CHEST: Good respiratory effort, clear to auscultation HEART: Normal rate, regular rhythm, normal S1 and S2, soft systolic murmur ABDOMEN: Soft, nontender NEUROLOGICAL: Alert, oriented, no gross motor deficits MUSCULOSKELETAL: No major deformity, no amputation EXTREMITIES: No pedal edema, no clubbing, no cyanosis SKIN: no rash on the exposed area, no cyanosis PSYCHIATRIC: Normal mood, appropriate affect Right groin is free of hematoma ecchymosis or bruit Objective Data Vital Signs Vital Signs: Vital Signs - 24 hr 01/28/21 12:00 01/28/21 14:15 01/28/21 14:30 Temperature 36.3 C L Pulse Rate 49 L 68 60 Pulse Rate [Right Pedal (Dorsalis Pedis) Palpation] 68 60 Respiratory Rate 21 H 19 Blood Pressure 127/67 135/72 Pulse Oximetry 96 95 01/28/21 14:45 01/28/21 15:00 01/28/21 15:30 Temperature Pulse Rate 62 53 L 52
--- NOTE | 2021-01-29 12:34 | PM.DS ---
DS: Admitting Diagnosis Admitting Diagnosis Admitting Diagnosis: cva DS: Discharge Diagnosis Discharge Diagnosis (1) Acute CVA (cerebrovascular accident): Code(s): I63.9 - Cerebral infarction, unspecified Status: Acute Assessment and Plan: MRI showed Scattered acute infarcts involving the cerebellum, left sara, right thalamus, and bilateral temporal and occipital lobes. -CTA Head and Neck showed No aneurysm or significant intracranial arterial stenosis. 0% stenosis of the proximal internal carotid arteries relative to normal distal artery lumen diameters (NASCET criteria). -Initial TTE Echo showed Normal LV size, mild LVH; normal LV systolic function, EF 55-60%; grade 1 diastolic dysfunction. Mild left atrial enlargement. Normal mitral valve structure, no significant MR; no mitral stenosis. Mild aortic valve calcification, mild aortic stenosis, JUSTIN 2.2 cm2. Unable to assess RVSP due to inadequate TR jet. Normal sinus rhythm. -Lipid panel is well controlled, LDL <70, TG elevated at 237. continue high intensity statin -Talked to Dr. Griffin Cardiology, who evaluated the patient preformed a SCOOTER 01/27/21 showing pooling of blood in his heart which could have formed clots and cause his stroke to occur. He also found the patient's EF on the SCOOTER was moderately to severely reduced 30-35%. Dr. Griffin will perform a cardiac catheterization today for further evaluation on his reduced EF. -Dr. Griffin recommended xarelto, plavix, and statin -pt had no neurological deficits and was able to d/c without therapy (2) Systolic congestive heart failure: Code(s): I50.20 - Unspecified systolic (congestive) heart failure Status: Acute Assessment and Plan: Scooter showed the patient has moderate to severe systolic congestive heart failure with an EF of 30-35%. -Cardiac cath showed subtotal occlusion to distal RCA with attempted percutaneous coronary intervention but was unsuccessful. Plan to attempt this at a later date at [facility] -Pt to follow up with their office on the date of this as he will need to hold some of his new medications. -Continue home lisionpril. Spironolactone, high-dose atorvastatin, and Coreg started. BMP in 1 week which will be sent to 's office -Pt was euvolemic at d/c (3) Uncontrolled hypertension: Code(s): I10 - Essential (primary) hypertension Status: Acute Assessment and Plan: Most likely elevated due to acute strokes. BP 133/67 at d/c. Please see below for new meds (4) Snoring: Code(s): R06.83 - Snoring Status: Acute Assessment and Plan: Recommend following up with PCP for outpatient testing. (5) Dyslipidemia: Code(s): E78.5 - Hyperlipidemia, unspecified Status: Inactive Assessment and Plan: continue statin -see above DS: Summary Hospital Course Hospital Course: Patient is a 70-year-old man with a history of dyslipidemia, GERD, hypertension, who presented to the emergency room with heaviness/numbness tingling to his left arm and leg, feeling off balance, worsening vision issues, trouble writing which occurred on 01/20/2021 when he woke up in the morning. The patient did not think anything of it but after symptoms did not improve he decided to come to the emergency room. Initial vitals showed he was afebrile, non tachycardic, respiratory rate 16, pulse ox 96% on room air, blood pressure elevated 180/80. Initial labs showed Normal CBC with differential, normal coag panel, normal BMP. CT head showed No acute intracranial abnormality. Chronic left cerebellar infarct. The patient was admitted into the hospital for further evaluation for stroke workup, neurology consultation and evaluation with therapy. MRI showed scattered acute infarcts involving the cerebellum, left sara, right thalamus, and bilateral temporal and occipital lobes. This was concerning for cardiac source since it was bilateral and he underwent a TTE and T
--- NOTE | 2021-01-30 15:19 | PC.NURSE ---
Patients family called stating patient normally takes a daily aspirin 81mg. Spoke with cardiology, Mirtha Glaser, who stated to have patient stop aspirin while taking plavix and xarelto. Attempted to call patient back to notify them and received voicemail. Will attempt to contact patient/family again.
== END 2021-01-29 14:42 | disposition home or self-care (01) | DRG 65 ==
LOC: ANHED 22:42 → ANH2MED 23:10
PROVIDERS: Internal Medicine Cardiovascular Disease; Physician Assistant; Admitting Provider Internal Medicine; Emergency Provider Emergency Medicine; Visit Provider Physician Assistant
PROC: B24BZZ4 Ultrasonography of Heart with Aorta, Transesophageal (ICD-10-PCS; CPT 93312; 2021-01-27 10:20)
PROC: 4A023N7 Measurement of Cardiac Sampling and Pressure, Left Heart, Percutaneous Approach (ICD-10-PCS; CPT 93454; principal; 2021-01-28 12:30)
PROC: 02703ZZ Dilation of Coronary Artery, One Artery, Percutaneous Approach (ICD-10-PCS; CPT 92920; 2021-01-28 12:30)
DX: I63.9 Cerebral infarction, unspecified (principal); I50.20 Unspecified systolic (congestive) heart failure; I11.0 Hypertensive heart disease with heart failure; I25.10 Atherosclerotic heart disease of native coronary artery without angina pectoris; R20.0 Anesthesia of skin; R26.81 Unsteadiness on feet; R06.83 Snoring; E78.5 Hyperlipidemia, unspecified; K21.9 Gastro-esophageal reflux disease without esophagitis; E66.9 Obesity, unspecified; Z68.36 Body mass index [BMI] 36.0-36.9, adult; Z79.899 Other long term (current) drug therapy; Z86.73 Personal history of transient ischemic attack (TIA), and cerebral infarction without residual deficits; Z87.891 Personal history of nicotine dependence; Z88.0 Allergy status to penicillin
CPT/HCPCS: 36415; 70450; 70496; 70498; 70553; 71046; 80048; 80061; 82607; 82746; 83036; 83735; 84484; 85014; 85018; 85025; 85027; 85610; 85730; 92920; 93005; 93306; 93312; 93320; 93325; 93454; 96374; 96375; 96376; 97161; 97165; 99285; A9270; A9577; C1769; C1887; C1894; G0378; J0360; J0461; J0583; J1100; J1644; J1650; J2250; J2405; J2704; J3010; J7030; J7040; Q9967

== ENCOUNTER 2021-06-12 13:30 | Outpatient (RCR) | payer OTHER, SELFPAY ==
[2021-03-21 08:54] VITALS: BP 142/80; PULSE 50; RESP 16; O2SAT 97
== END 2021-06-12 15:20 | disposition home or self-care (01) ==
LOC: ANHCPREHAB 13:30
PROVIDERS: Visit Provider Internal Medicine Cardiovascular Disease
DX: Z95.5 Presence of coronary angioplasty implant and graft (principal)
CPT/HCPCS: 93798

== ENCOUNTER 2024-12-21 21:03 | Emergency (ER) | payer OTHER, SELFPAY ==
--- NOTE | ~2024-12-21 | XR_ITS ---
CHEST RADIOGRAPH CLINICAL HISTORY: Diaphoresis SUDDENLY WHILE WATCHING TV RAILCAR BRAKE OPERATOR . COMPARISON: 01/24/2021 TECHNIQUE: Single portable view of the chest. FINDINGS The cardiomediastinal silhouette is enlarged, unchanged. The lungs are clear. IMPRESSION: No focal infiltrate or effusion. Reviewed, dictated and finalized at location A.
--- OUTSIDE RECORDS SUMMARY | 2024-12-21 21:07 | XMS_ITS | Clinical Summary ---
Author Organization [facility] [address] Address [address] [place] [address] Care Team Providers Care Credit Portfolio Advisor Name Role Phone Toro Gonzalez DO Primary Care Prov ider Allergies Active Allergy Reactions Criticality Noted Date Comments Azithromycin Nausea only Low 01/09/2020 Penicillins Unknown Low 02/06/2021 Unknown reaction from childhood. Penicillin allergy history form completed , unknown risk Medications lisinopriL (PRINIVIL,ZESTR IL) 40 mg tablet Take 1 tablet (40 mg total) by mouth daily 12/20/2020 Active Xarelto 20 mg tablet Take 1 tablet (20 mg total) by mouth daily 01/29/2021 Active spironolactone (ALDACTONE) 25 mg tablet Take 1 tablet (25 mg total) by mouth daily 01/29/2021 Active clopidogreL (PLAVIX) 75 mg tablet TAKE 1 TABLET BY MOUTH EVERY DAY 90 tablet 1 07/26/2023 Active carvediloL (COREG) 3.125 mg tablet Take 1 tablet (3.125 mg total) by mouth 2 (two) times a day with meals 60 tablet 11 09/13/2024 Active amLODIPine (NORVASC) 10 mg tablet Take 1 tablet (10 mg total) by mouth nightly 90 tablet 6 09/13/[address] (PROTONIX) 20 mg EC tablet TAKE 1 TABLET BY MOUTH EVERY DAY IN THE MORNING 90 tablet 3 10/10/2024 Active atorvastatin (LIPITOR) 80 mg tablet TAKE 1 TABLET BY MOUTH EVERY DAY AT NIGHT 90 tablet 6 11/15/2024 Active Active Problems Problem Noted Date Diagnosed Date Coronary artery disease invo lving iliamna heart without angina pectoris 01/29/2021 Overview (01/29/2021): Added automatically from request for surgery [id number] Surgical History Surgery Date Site/Laterality Comments COLONOSCOPY CARDIAC CATHETERIZATION Medical History Medical History Date Comments Stroke (HCC) Hypertension Cardiomyopathy (HCC) CAD (coronary artery disease) HLD (hyperlipidemia) GERD (gastroesophageal reflux disease) Asthma childhood History of gastric ulcer Food intolerance spicy food Hyperlipemia Family History Medical History Relation Name Comments Heart disease Brother Hyperlipidemia Brother Hypothyroidism Father Lung cancer Father Stroke Father Heart disease Mother Hyperthyroidism Mother Relation Name Status Comments Brother Alive Father (Age 72) Mother (Age 97) Social History Tobacco Use Types Packs/Day Years Used Date Smoking Tobacco: Former Cigarettes Q uit: 09/03/2004 Smokeless Tobacco: Never Tobacco Cessation:Counseling Given: Not Answered AUDIT-C Answer Date Recorded Q1: How often do you have a drink containing alcohol? 4 or more times a week 02/14/2021 Q2: How many drinks containi ng alcohol do you have on a typical day when you are drinking? 3 or 4 Q3: How often do you have si x or more drinks on one occasion? 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 Gender Identity Not on file Sexual Orientation Not on file Obstetrics History Last Filed Vital Signs Vital Sign Reading Time Taken Comments Blood Pressure 138/68 09/13/2024 12:58 PM WEIGH TANK OPERATOR Pulse 48 09/13/2024 12:58 PM WEIGH TANK OPERATOR Temperature 36.5 C (97.7 F) 02/15/2021 11:58 AM CDT Respiratory Rate 18 02/15/2021 11:58 AM CDT Oxygen Saturation 95% 09/13/2024 12:58 PM WEIGH TANK OPERATOR Inhaled Oxygen Concentration - - Weight 89.4 kg (197 lb) 09/13/2024 12:58 PM WEIGH TANK OPERATOR Height 162.6 cm (5' 4 ) 09/13/2024 12:58 PM WEIGH TANK OPERATOR Body Mass Index 33.81 09/13/2024 12:58 PM WEIGH TANK OPERATOR Plan of Treatment Health Maintenance Due Date Last Done Comments Colon Cancer Screening-Colonoscopy 1950 Depression Screening 1950 Hepatitis C Screening 1950 Hepatitis B Screening 1970 Pneumococcal vaccine 65+ (1 of 1 - PCV) 2002 Zoster Vaccine (1 of 2) 2002 Well Visit 65+ 2017 DTaP/Tdap/Td Vaccine (2 - Td or Tdap) 07/16/2019 Fall Risk Assessment 02/15/2022 02/15/2021 Influenza Vaccine (Season Ended) 2025 Abdominal Aortic Aneurysm (AAA) Screen Completed Medical Devices Implanted Type Area Simonizer Device Identifier Shelf Expiration Date Model / Serial / Lot [employer] [id number] Synergy 3mm 28mm 144cm Radiopaque 1 Access Port Inflation Lumen - [id number] Implanted:Qty: 1 on 02/14/2021 by Mamadou Griffin MD at [facility] [employer] [id number] / / Daig Stone [id number] Device Closure Angio-Seal Vip [employer]k-Plus Polyglyd L70 Cm Od6 Fr [id number] In Vascular - [id number] Implanted:Qty: 1 on 02/14/2021 by Mamadou Griffin MD at [facility] [employer] [id number] / / Insurance HEALTHCARE HEALTHCARE Advance Directives For more information, please contact: [phone] Healthcare Agents on File Name Relationship Healthcare Agent [facility] Communication Ammy Tejeda Daughter First Alternate Health Care Agent Care Teams Credit Portfolio Advisor Relationship Specialty Start Date End Date Toro Gonzalez DO PCP - General Family Medicine 03/06/21
--- OUTSIDE RECORDS SUMMARY | 2024-12-21 21:07 | XMS_ITS | Clinical Summary ---
Author Organization [facility] Address [address] [place] [address] Care Team Providers Care Geophysical Engineer Name Role Phone Mercedes Gonzalezrick Primary Care Provide r Allergies Active Allergy Reactions Criticality Noted Date Comments Azithromycin Shortness of Breath,Nausea Only High 01/09/2020 Cefprozil Other (see comment) 07/16/2009 Hydrochlorothiazide Myalgias 05/31/2018 Penicillins Unknown Low 02/06/2021 Unknown reaction from childhood. Penicillin allergy history form completed , unknown risk Medications lisinopril 40 MG tablet Take 1 tablet (40 mg total) by mouth daily. 2 8 Active atorvastatin 20 MG tablet Take 4 tablets (80 mg total) by mouth daily. 3 8 Active clopidogrel (PLAVIX) 75 MG tablet Take 1 tablet (75 mg total) by mouth daily. 3 Active spironolactone (ALDACTONE) 25 MG tablet Take 1 tablet (25 mg total) by mouth daily. 4 Active XARELTO 20 MG Tab tablet Take 1 tablet (20 mg total) by mouth daily with supper. Active carvedilol (COREG) 6.25 MG tablet Take 1 tablet (6.25 mg total) by mouth 2 (two) times daily with meals. 4 Active Na sulfate-K sulfate-Mg sulfate (SUPREP BOWEL PREP KIT) 17.5-3.13-1.6 GM/177ML SolutionIndicat ions:Blood in stool Take 177 mLs by mouth every 12 (twelve) hours. Per GI instructions 354 mL 4 Active pantoprazole EC (PROTONIX) 20 MG tablet Take 1 tablet (20 mg total) by mouth every morning. Active ferrous sulfate, 65 mg elemental, 325 (65 FE) MG tablet Take 1 tablet (325 mg total) by mouth daily with breakfast. 4 Active Active Problems Problem Noted Date Diagnosed Date Blood in stool 03/14/2024 Colitis 01/14/2018 Immunizations Immunization Administration Dates Next Due Tdap (Generic) 07/16/2009 Family History Medical History Relation Comments small cell lung cancer Father Heart Disease Mother Solid Tumor Mother Relation Status Comments Father Mother Social History Tobacco Use Types Packs/Day Years Used Date Smoking Tobacco: Former Cigarettes 2 25 S tarted: 1979 Smokeless Tobacco: Never Tobacco Cessation:Counseling Given: Not Answered Alcohol Use Standard Drinks/Week Comments Yes 16.7 (1 standard drink = 0.6 oz pure alcohol) PHQ-2 Answer Date Recorded Patient Health Questionnaire-2 Score 0 03/10/2024 Sex and Gender Information Value Date Recorded Sex Assigned at Not on file Legal Sex Male 5:25 PM CDT Gender Identity Not on file Sexual Orientation Not on file Last Filed Vital Signs Vital Sign Reading Time Taken Comments Blood Pressure 159/80 05/25/2024 12:00 PM CDT Pulse 59 05/25/2024 11:51 AM CDT Temperature 36.7 C (98.1 F) 05/25/2024 11:24 AM CDT Respiratory Rate 20 05/25/2024 11:51 AM CDT Oxygen Saturation 96% 05/25/2024 12:00 PM CDT Inhaled Oxygen Concentration - - Weight 88.5 kg (195 lb) 05/25/2024 10:36 AM CDT Height 162.6 cm (5' 4 ) 05/25/2024 10:36 AM CDT Body Mass Index 33.47 05/25/2024 10:36 AM CDT Plan of Treatment Health Maintenance Due Date Last Done Comments Hepatitis C 1970 Lung Cancer Screening 2002 Pneumococcal Vaccine: 50+ Years (1 of 1 - PCV) 2002 Zoster Vaccines (1 of 2) 2002 Annual Medicare Wellness Visit 2017 DTaP, Tdap and Td Vaccines ( 2 - Td or Tdap) 07/16/2019 07/16/2009 COVID-19 Vaccine (2023-2 5 season) 2024 09/11/2021, 12/24/2020, 12/03/2020 PHQ-2 (Physician [place]) 08/30/2024 03/10/2024 RSV Immunization or 60+ Years (1 - 1-dose 75+ series) 2027 Colorectal Cancer Screening Colonoscopy (10 Years) 05/25/2034 05/25/2024, 05/25/2024 AAA SCREENING Completed 01/14/2018 Meningococcal B Vaccine Aged Out No l onger eligible based on patient's age to complete this topic Meningococcal Vaccine Aged Out No olinda carlos eligible based on patient's age to complete this topic RSV Immunizations Under 20 Months Aged Out No longer eligible b ased on patient's age to complete this topic Procedures Procedure Name Priority Date/Time Associated Diagnosis Comments COLONOSCOPY Routine 05/25/2024 10:[address] ABD+PEL W CON STAT 01/14/2018 8:42 PM CDT from Last 3 Months or Most Recently Relevant to Health Maintenance Results * CT ABD+PEL W CON (01/14/2018 8:42 PM CDT) Anatomical Region Laterality Modality Abdomen Computed Tomogra phy 01/14/2018 8:51 PM CDT Impressions 01/14/2018 8:57 PM CDT IMPRESSION: 1. Abnormal moderate circumferential thickening of the wall of a long segment of the descending and sigmoid colon suggesting acute colitis and/or inflammatory bowel disease. No perforation or abscess. 2. No bowel obstruction or acute appendicitis. Colonic diverticulosis. 3. No acute obstructive uropathy. A radiation dose lowering technique was used for this procedure, which may include, but is not limited to, dose reduction technique, automated exposure control, the use of iterative reconstruction, ALARA (As Low As Reasonably Achievable) techniques, and Image Gently techniques. Narrative 01/14/2018 8:57 PM CDT EXAMINATION: CT ABDOMEN AND PELVIS WITH CONTRAST HISTORY: Abdominal pain. Diarrhea with bright blood in stool.. COMPARISON: None Available. TECHNIQUE: 3 mm axial images were obtained through the abdomen and pelvis following the administration of 100 MLS of ISOVUE-300 intravenous contrast through an existing IV line. Additional sagittal & coronal reconstructions were performed. FINDINGS: ABDOMEN: Imaging of the lung bases demonstrates no airspace consolidation or effusions. Liver: Normal in size and CT density. No masses. Spleen: Normal size and CT density. Pancreas: Normal size and CT density. No duct dilatation. No masses. Adrenal Glands: Normal in size and CT density. No masses. Gallbladder and bile ducts: Normal in appearance. No duct dilatation. Kidneys: Normal shape, size and position. No right or left hydronephrosis. Symmetric perfusion. No masses. Aorta: Patent. Normal in caliber. IVC: Patent. Normal in caliber. GI Tract: No small bowel obstruction. No intraperitoneal or retroperitoneal adenopathy or hematoma. No ascites or pneumoperitoneum is seen. PELVIS: Colon: Moderate circumferential thickening of the long segment of the descending and sigmoid colon. No perforation or abscess. Colonic diverticulosis. Appendix: Normal. Urinary Bladder: Well distended. Prostate: Not enlarged. Trace free pelvic fluid which is likely reactive. BONES: Mild spondylosis. No distinct destructive bony lesions. Procedure Note Edilma Allen MD - 01/14/2018 EXAMINATION: CT ABDOMEN AND PELVIS WITH CONTRAST HISTORY: Abdominal pain. Diarrhea with bright blood in stool.. COMPARISON: None Available. TECHNIQUE: 3 mm axial images were obtained through the abdomen and pelvis following the administration of 100 MLS of ISOVUE-300 intravenous contrast throughan existing IV line. Additional sagittal & coronal reconstructions were performed. FINDINGS: ABDOMEN: Imaging of the lung bases demonstrates no airspace consolidation or effusions. Liver: Normal in size and CT density. No masses. Spleen: Normal size and CT density. Pancreas: Normal size and CT density. No duct dilatation. No masses. Adrenal Glands: Normal in size and CT density. No masses. Gallbladder and bile ducts: Normal in appearance. No duct dilatation. Kidneys: Normal shape, size and position. No right or lefthydronephrosis. Symmetric perfusion. No masses. Aorta: Patent. Normal in caliber. IVC: Patent. Normal in caliber. GI Tract: No small bowel obstruction. No intraperitoneal or retroperitoneal adenopathy or hematoma. No ascites or pneumoperitoneum is seen. PELVIS: Colon: Moderate circumferential thickening of the long segment of the descending and sigmoid colon. No perforation or abscess. Colonic diverticulosis. Appendix: Normal. Urinary Bladder: Well distended. Prostate: Not enlarged. Trace free pelvic fluid which is likely reactive. BONES: Mild spondylosis. No distinct destructive bony lesions. IMPRESSION: 1. Abnormal moderate circumferential thickening of the wall of a long segment of the descending and sigmoid colon suggesting acute colitisand/or inflammatory bowel disease. No perforation or abscess. 2. No bowel obstruction or acute appendicitis. Colonic diverticulosis. 3. No acute obstructive uropathy. A radiation dose lowering technique was used for this procedure, whichmay include, but is not limited to, dose reduction technique, automated exposure control, the use of iterative reconstruction, ALARA (As Low As Reasonably Achievable) techniques, and Image Gently techniques. Will Hong MD CT Final Result from Last 3 Months or Most Recently Relevant to Health Maintenance Insurance [employer] Advance Directives * Full Code (Latest Code Status on File) Date Activated Date Inactivated Comments 01/14/2018 11:40 PM 01/18/2018 2:38 PM Care Teams Geophysical Engineer Relationship Specialty Start Date End Date Toro Gonzalez DO [address] [place] [phone] PCP - General FAMILY PRACTICE 03/10/24
--- OUTSIDE RECORDS SUMMARY | 2024-12-21 21:07 | XMS_ITS | Referral Summary ---
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 Gender Identity Not on file Sexual Orientation Not on file Last Filed Vital Signs Vital Sign Reading Time Taken Comments Blood Pressure 138/68 09/13/2024 12:58 PM TANK CAR INSPECTOR Pulse 48 09/13/2024 12:58 PM TANK CAR INSPECTOR Temperature 36.5 C (97.7 F) 02/15/2021 11:58 AM CDT Respiratory Rate 18 02/15/2021 11:58 AM CDT Oxygen Saturation 95% 09/13/2024 12:58 PM TANK CAR INSPECTOR Inhaled Oxygen Concentration - - Weight 89.4 kg (197 lb) 09/13/2024 12:58 PM TANK CAR INSPECTOR Height 162.6 cm (5' 4 ) 09/13/2024 12:58 PM TANK CAR INSPECTOR Body Mass Index 33.81 09/13/2024 12:58 PM TANK CAR INSPECTOR Plan of Treatment Not on file Medical Devices Implanted Type Area Factory Maintenance Technician Device Identifier Shelf Expiration Date Model / Serial / Lot Alum.ni [id number] Synergy 3mm 28mm 144cm Radiopaque 1 Access Port Inflation Lumen - [id number] Implanted:Qty: 1 on 02/14/2021 by Mamadou Griffin MD at [facility] Alum.ni [id number] / / Daig Stone [id number] Device Closure Angio-Seal Vip Bondek-Plus Polyglyd L70 Cm Od6 Fr Odsec.035 In Vascular - [id number] Implanted:Qty: 1 on 02/14/2021 by Mamadou Griffin MD at [facility] [id number] / / Insurance [employer] Member Subscriber Plan / Payer (Ef fective 2017-Present) Name:[place], Serafin E Relation to Subscriber:Self Name:Phi Serafin E Payer ID:[id number] (NAIC) Type:MEDICARE RISK OTHER Address: [place] [id number] [facility] Advance Directives For more information, please contact: [phone] Healthcare Agents on File Name Relationship Healthcare Agent Relationstx p Communication Ammy Tejeda Daughter First Alternate Health Care Agent Care Teams Sap Director Relationship Specialty Start Date End Date Toro Gonzalez DO PCP - General Family Medicine 03/06/21
[2024-12-21 21:09] VITALS: BP 159/58; PULSE 67; RESP 15; TEMP 36.2; O2SAT 98
--- NOTE | 2024-12-21 21:43 | ECG_ITS ---
Test Date: 2024-12-21 22:44:40 Measurements Intervals [place] Rate: 59 P: -2 NE: 187 QRS: -5 QRSD: 100 T: 22 QT: 398 QTc: 396 Interpretive Statements SINUS BRADYCARDIA WITH OCCASIONAL VENTRICULAR PREMATURE COMPLEXES DELAYED PRECORDIAL R/S TRANSITION CONSIDER INFERIOR INFARCT, AGE INDETERMINATE ABNORMAL ECG No previous ECG available for comparison Electronically Signed On 12-22-2024 07:07:48 CDT by Darvin Villela D.O.
[2024-12-21 22:05] VITALS: BP 153/75; PULSE 85; RESP 15; O2SAT 98
[2024-12-21 22:07] LABS: Basophils Percent Auto 0.3 % (0.2-1.2); Eosinophils Absolute Auto 0.1 K/mm3 (0-0.3); Eosinophils Percent Auto 0.9 % (0-4.4); Hematocrit 37.7 % (42.0-52.0); Hemoglobin 12.1 g/dL (14.0-18.0); Immature Granulocyte Absolute 0.03 K/mm3 (0.00-0.031); Immature Granulocyte Percent A 0.3 % (0-0.5); Lymphocytes Absolute Auto 1.25 K/mm3 (0.9-3.2); Lymphocytes Percent Auto 10.7 % (18.3-44.2); Mean Corpuscular HGB Conc 32.1 g/dl (32-36); Mean Corpuscular Hemoglobin 29.5 pg (26-34); Mean Platelet Volume 9.7 fl (7.4-10.4); Monocytes Absolute Auto 0.5 K/mm3 (0.1-0.6); Monocytes Percent Auto 4.2 % (2.6-8.5); Neutrophils Absolute Auto 9.8 K/mm3 (1.3-6.7); Neutrophils Percent Auto 83.6 % (45.5-73.1); Platelet Count Result 293 k/mm3 (150-375); White Blood Count 11.7 K/mm3 (4.5-10.0)
--- NOTE | 2024-12-21 22:09 | PC.NURSE ---
pt reports brief hot flash and sweating. pt then states he is now cool . pt daughter also states he did not have any slurred speech but did have slow speech
[2024-12-21 22:12] VITALS: PULSE 77
[2024-12-21 22:18] LABS: Alanine Aminotransferase 56 U/L (6-50); Albumin Level 4.8 g/dL (3.5-5.1); Alkaline Phosphatase 65 U/L (38-126); Anion Gap 14 mmol/L (4-12); Aspartate Amino Transferase 39 U/L (17-59); Bilirubin,Total 1.3 mg/dL (0.2-1.3); Blood Urea Nitrogen 13 mg/dL (9-20); Calcium 9.4 mg/dL (8.4-10.2); Carbon Dioxide 23 mmol/L (22-30); Chloride 104 mmol/L (98-107); Estimated CRCL calculation 81 ml/min; Estimated Glomerular Filt Rate > 60; Glucose 99 mg/dL (65-110); Lipase 342 U/L (23-300); Magnesium 1.9 mg/dL (1.6-2.3); Potassium 3.7 mmol/L (3.4-5.0); Sodium 141 mmol/L (137-145)
[2024-12-21] MEDS: SODIUM CHLORIDE 0.9% IV 1,000 ML 999 ML IV CONT (22:18)
[2024-12-21 22:19] LABS: INR 2.1; Partial Thromboplastin Time 39.9 Seconds (22.3-36.8); Prothrombin Time 24.1 Seconds (11.1-14.7)
[2024-12-21 22:29] LABS: Troponin I < 0.012 ng/mL (0.000-0.034)
--- OUTSIDE RECORDS SUMMARY | 2024-12-21 22:41 | XMS_ITS | Clinical Summary ---
Author Organization [facility] [place] [address] Address [address] [place] [address] Care Team Providers Care Mechanical Engineering Technician Name Role Phone Toro Gonzalez DO Primary [...] Diagnosed Date Coronary artery disease invo lving [place] heart without angina pectoris 01/29/2021 Overview (01/29/2021): Added automatically from request for surgery [id number] Surgical History Surgery Date Site/Laterality Comments COLONOSCOPY [...] on file Legal Sex Male 6:24 PM PRODUCT EVANGELIST Gender Identity Not on file Sexual Orientation Not on file Obstetrics History Last Filed Vital Signs Vital Sign Reading Time Taken Comments Blood Pressure 138/68 09/13/2024 12:58 PM PRODUCT EVANGELIST Pulse 48 09/13/2024 12:58 PM PRODUCT EVANGELIST Temperature 36.5 C (97.7 F) 02/15/2021 11:58 AM CDT Respiratory Rate 18 02/15/2021 11:58 AM CDT Oxygen Saturation 95% 09/13/2024 12:58 PM PRODUCT EVANGELIST Inhaled Oxygen Concentration - - Weight 89.4 kg (197 lb) 09/13/2024 12:58 PM PRODUCT EVANGELIST Height 162.6 cm (5' 4 ) 09/13/2024 12:58 PM PRODUCT EVANGELIST Body Mass Index 33.81 09/13/2024 12:58 PM PRODUCT EVANGELIST Plan of Treatment Health Maintenance Due Date [...] Screen Completed Medical Devices Implanted Type Area Filter Operator Device Identifier Shelf Expiration Date Model / Serial / Lot op5 [id number] Synergy 3mm 28mm 144cm Radiopaque 1 Access Port Inflation Lumen - [id number] Implanted:Qty: 1 on 02/14/2021 by Mamadou Griffin MD at [facility] op5 [id number] 300 / / Daig Stone [id number] Device Closure Angio-Seal Vip Bondek-Plus Polyglyd L70 Cm Od6 Fr Odsec.035 In Vascular - [id number] Implanted:Qty: 1 on 02/14/2021 by Mamadou Griffin MD at [facility] [place] [id number] / / Insurance [employer] Advance Directives For more information, please contact: [phone] Healthcare Agents on File Name Relationship Healthcare Agent [facility] Communication Ammy Tejeda Daughter First Alternate Health Care Agent Care Teams Mechanical Engineering Technician Relationship Specialty Start Date End Date Toro Gonzalez DO PCP - General Family Medicine 03/06/21
--- OUTSIDE RECORDS SUMMARY | 2024-12-21 22:41 | XMS_ITS | Referral Summary ---
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 Gender Identity Not on file Sexual Orientation Not on file Last Filed Vital Signs Vital Sign Reading Time Taken Comments Blood Pressure 138/68 09/13/2024 12:58 PM BUSINESS TEACHER Pulse 48 09/13/2024 12:58 PM BUSINESS TEACHER Temperature 36.5 C (97.7 F) 02/15/2021 11:58 AM CDT Respiratory Rate 18 02/15/2021 11:58 AM CDT Oxygen Saturation 95% 09/13/2024 12:58 PM BUSINESS TEACHER Inhaled Oxygen Concentration - - Weight 89.4 kg (197 lb) 09/13/2024 12:58 PM BUSINESS TEACHER Height 162.6 cm (5' 4 ) 09/13/2024 12:58 PM BUSINESS TEACHER Body Mass Index 33.81 09/13/2024 12:58 PM BUSINESS TEACHER Plan of Treatment Not on file Medical Devices Implanted Type Area Payroll Examiner Device Identifier Shelf Expiration Date Model / Serial / Lot [address] [id number] Synergy 3mm 28mm 144cm Radiopaque 1 Access Port Inflation Lumen - [id number] Implanted:Qty: 1 on 02/14/2021 by Mamadou Griffin MD at [facility] [address] [id number] / / Daig Stone [id number] Device Closure Angio-Seal Vip Bondek-Plus Polyglyd L70 Cm Od6 Fr Odsec.035 In Vascular - [id number] Implanted:Qty: 1 on 02/14/2021 by Mamadou Griffin MD at [facility] [id number] / / Insurance [employer] Member Subscriber Plan / Payer (Ef fective 2017-Present) Name:[place], Serafin E Relation to Subscriber:Self Name:Phi Serafin E Payer ID:[id number] (NAIC) Type:MEDICARE RISK OTHER Address: [place] [id number] [facility] Advance Directives For more information, please contact: [phone] Healthcare Agents on File Name Relationship Healthcare Agent Relationsnm p Communication Ammy Tejeda Daughter First Alternate Health Care Agent Care Teams Internal Combustion Engine Inspector Relationship Specialty Start Date End Date Toro Gonzalez DO PCP - General Family Medicine 03/06/21
--- OUTSIDE RECORDS SUMMARY | 2024-12-21 22:41 | XMS_ITS | Clinical Summary ---
Author Organization [facility] Address [address] [place] [address] Care Team Providers Care Senior Embedded Software Engineer Name Role Phone Mercedes Gonzalezrick Primary [...] season) 2024 09/11/2021, 12/24/2020, 12/03/2020 PHQ-2 (Physician [place]) 08/30/2024 03/10/2024 RSV Immunization or 60+ Years [...] 11:40 PM 01/18/2018 2:38 PM Care Teams Senior Embedded Software Engineer Relationship Specialty Start Date End Date Toro Gonzalez DO [address] [place] [phone] PCP - General FAMILY PRACTICE 03/10/24
[2024-12-21 23:37] VITALS: BP 134/74; PULSE 67; RESP 16; O2SAT 98
[2024-12-21 23:39] LABS: Glucose Point of Care 84 mg/dl (65-105)
[2024-12-21 23:39] LABS: Add Urine Microscopic? NO; Appearance Urine Clear (Clear); Bilirubin Urine Negative (Negative); Blood Urine Negative (Negative); Color Urine Yellow (Yellow); Glucose Urine UA Negative (Negative); Ketones Urine Trace mg/dL (Negative); Leukocyte Esterase Ur Negative LEU/UL (Negative); Nitrate Urine Negative (Negative); Protein Urine Negative (Negative); Specific Grav Ur 1.005 (1.001-1.035); Urobilinogen Urine 0.2 mg/dL (<2.0)
[2024-12-22 00:33] VITALS: BP 132/64; PULSE 62; RESP 15; O2SAT 95
--- NOTE | 2024-12-22 00:43 | ECG_ITS ---
Test Date: 2024-12-22 00:46:42 Measurements Intervals [place] Rate: 59 P: 1 CO: 198 QRS: 0 QRSD: 95 T: 18 QT: 409 QTc: 406 Interpretive Statements SINUS BRADYCARDIA CANNOT R/O SEPTAL INFARCT, AGE INDETERMINATE CONSIDER INFERIOR INFARCT, AGE INDETERMINATE ABNORMAL ECG Compared to ECG 12/21/2024 22:44:40 NO SIGNIFICANT CHANGE Electronically Signed On 12-22-2024 07:09:28 CDT by Darvin Villela D.O.
[2024-12-22 01:07] LABS: Troponin I < 0.012 ng/mL (0.000-0.034)
--- NOTE | 2024-12-22 01:32 | ED_ITS ---
HPI - General Adult General Chief complaint: Unspecified Stated complaint: Light headed, hot flash Time Seen by Provider: 12/21/24 21:48 History of Present Illness HPI narrative: This is a 74 year male presenting ED for episode of lightheadedness and flushing. 3 hours prior to arrival the patient was watching TV. He started to feel very hot and diaphoretic. This lasted 10 minutes and then resolved on his own. During this time he did not have any chest pain, headaches difficulty breathing abdominal pain nausea vomiting urinary symptoms. Patient is currently asymptomatic. Patient has a very busy day today. He spent the day out with his daughter walking around in ED degree heat. He did not drink very much water. He also had 5 cups of coffee for lunch. Related Data Home Medications ?Medication ?Instructions ?Recorded ?Confirmed ?Last Taken ?Type fluticasone propionate 50 2 spray intranasal DAILY 01/25/21 12/21/24 12/21/24 History mcg/actuation nasal spray,suspension lisinopril 40 mg tablet 40 mg PO DAILY 01/25/21 12/21/24 12/21/24 History aspirin 81 mg tablet 81 mg PO DAILY 03/21/21 12/21/24 03/21/21 History 81 carvedilol 3.125 mg tablet (Coreg) 6.25 mg PO Q12HR 03/21/21 12/21/24 12/21/24 History clopidogrel 75 mg tablet 75 mg PO 05/12/21 12/21/24 History tizanidine 2 mg tablet mg 12/21/24 12/21/24 History Allergies Allergy/AdvReac Type Severity Reaction Status Date / Time Penicillins Allergy Unknown Verified 12/21/24 21:06 azithromycin (From Zithromax AdvReac Gastrointestinal Verified 12/21/24 21:06 Z-Raúl) Upset PMFSH Past Medical History Medical History CVA (cerebral vascular accident) 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 He has 3 children to daughters and 1 son. His oldest child is in their 50s. 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 He used to smoke between 2-3 packs of cigarettes per day and smoked for approximately 26 years but quit at least 15 years ago. He reports that he drinks too much alcohol. He drinks 2-316 oz cans of beer every other day. He started drinking alcohol after he gave up smoking. He denies any illicit substance use. Code status: Full code Surrogate decision maker: Marianna Dumont (cousin) Smoking packs per day: 2 Smoking cigarettes per day: 40.0 Years smoked: 20 Smoking pack-years: 40.00 Smoking status: Former smoker Tobacco type: cigarettes Smoking end date: 08/30/04 Alcohol intake: current Drinks per week: 6 Substance use: never Substance use type: does not use Gender identity (if verbalized by the patient): Male Spiritual care concerns: No Exam 2 Narrative: APPEARANCE: No apparent distress. Head: atraumatic. EYES: EOMI, NOSE: Atraumatic NECK: Trachea midline RESPIRATORY: No increased rate of breathing clear to auscultation CARDIOVASCULAR: RRR, no peripheral edema +2 pulses in all extremities ABDOMINAL: Non-distended, soft nontender MUSCULOSKELETAl: No obvious deformities NEURO: Alert. Moving 4/4 extremities SKIN:: Warm, dry. Normal color PSYCHIATRIC: Normal affect Course Vital Signs Vital signs: Vital Signs Temperature 97.2 F L 12/21/24 21:09 Pulse Rate 67 12/21/24 21:09 Respiratory Rate 15 12/21/24 21:09 Blood Pressure 159/58 H 12/21/24 21:09 Pulse Oximetry 98 12/21/24 21:09 Oxygen Delivery Room Air 04/24/25 21:09 Temperature 97.2 F L 12/21/24 21:09 Pulse Rate 62 12/22/24 00:33 Respiratory Rate 15 12/22/24 00:33 Blood Pressure 132/64 12/22/24 00:33 Pulse Oximetry 95 12/22/24 00:33 Oxygen Delivery Room Air 12/21/24 21:09 Medical Decision Making MDM Narrative Medical decision making narrative: -Course: 74-year-old male presenting with an episode of lightheadedness and diaphoresis. Current patient is currently asymptomatic, well appearing and has stable vital signs. Patient was given fluid resuscitation. He was monitored in the ED for 4 hours with no recurrence of his event. Laboratory studies including troponin x2 chest x-ray and EKG were unremarkable. Results were discussed with the patient he is comfortable going home. Patient discharged return precautions. -DDX includes but is not limited to: Dehydration, ACS, syncope/presyncope cardiac dysrhythmia, heat exhaustion -Independent interpretation of studies: Labs imaging reviewed Independent EKG interpretation: Rhythm [sinus], Rate [59], [place] -[normal], [place] -[normal], QRS [narrow], QTC [normal], T waves -[negative for concerning inversions], ST Segments - [Negative for concerning elevations] Final interpretations: Sinus bradycardia with occasional PVC Vital Signs Vital Signs: Vital Signs Temperature 97.2 F L 12/21/24 21:09 Pulse Rate 67 12/21/24 21:09 Respiratory Rate 15 12/21/24 21:09 Blood Pressure 159/58 H 12/21/24 21:09 Pulse Oximetry 98 12/21/24 21:09 Oxygen Delivery Room Air 12/21/24 21:09 Temperature 97.2 F L 12/21/24 21:09 Pulse Rate 62 12/22/24 00:33 Respiratory Rate 15 12/22/24 00:33 Blood Pressure 132/64 12/22/24 00:33 Pulse Oximetry 95 12/22/24 00:33 Oxygen Delivery Room Air 12/21/24 21:09 Lab Data 12/21/24 22:01 12/21/24 22:01 Labs: Lab Results 12/21/24 12/21/24 12/21/24 Range/Units 22:01 22:11 23:30 WBC 11.7 H (4.5-10.0) K/mm3 RBC 4.10 L (4.6-6.20) M/mm3 Hgb 12.1 L (14.0-18.0) g/dL Hct 37.7 L (42.0-52.0) % MCV 92.0 (80-100) fl MCH 29.5 (26-34) pg MCHC 32.1 (32-36) g/dl RDW 14.0 (11.5-14.5) % Plt Count 293 (150-375) k/mm3 MPV 9.7 (7.4-10.4) fl Immature Gran % (Auto) 0.3 (0-0.5) % Neut % (Auto) 83.6 H (45.5-73.1) % Lymph % (Auto) 10.7 L (18.3-44.2) % [place] % (Auto) 4.2 (2.6-8.5) % Eos % (Auto) 0.9 (0-4.4) % Baso % (Auto) 0.3 (0.2-1.2) % Lymph # (Auto) 1.25 (0.9-3.2) K/mm3 [place] # (Auto) 0.5 (0.1-0.6) K/mm3 Eos # (Auto) 0.1 (0-0.3) K/mm3 Baso # (Auto) 0.0 (0.0-0.1) K/mm3 Abs Immat Gran (auto) 0.03 (0.00-0.031) K/mm3 Absolute Neuts (auto) 9.8 H (1.3-6.7) K/mm3 Absolute Nucleated RBC 0.000 (0.0-0.012) K/mm3 Nucleated RBC % 0.0 (0.0-0.2) % PT 24.1 H (11.1-14.7) Seconds INR 2.1 APTT 39.9 H (22.3-36.8) Seconds Sodium 141 (137-145) mmol/L Potassium 3.7 (3.4-5.0) mmol/L Chloride 104 (98-107) mmol/L Carbon Dioxide 23 (22-30) mmol/L Anion Gap 14 H (4-12) mmol/L BUN 13 (9-20) mg/dL Creatinine 0.73 (0.7-1.3) mg/dL Estim Creat Clear Calc 81 ml/min Estimated GFR > 60 (59 - ) Glucose 99 (65-110) mg/dL POC Capillary Glucose 84 (65-105) mg/dl Calcium 9.4 (8.4-10.2) mg/dL Magnesium 1.9 (1.6-2.3) mg/dL Total Bilirubin 1.3 (0.2-1.3) mg/dL AST 39 (17-59) U/L ALT 56 H (6-50) U/L Alkaline Phosphatase 65 (38-126) U/L Troponin I < 0.012 (0.000-0.034) ng/mL Total Protein 8.0 (6.3-8.2) g/dL Albumin 4.8 (3.5-5.1) g/dL Lipase 342 H (23-300) U/L Urine Color Yellow (Yellow) Urine Appearance Clear (Clear) Urine pH 6.0 (5.0-9.0) Ur Specific [place] 1.005 (1.001-1.035) Urine Protein Negative (Negative) mg/dL Urine Glucose (UA) Negative (Negative) mg/dL Urine Ketones Trace H (Negative) mg/dL Ur Blood (Man) Negative (Negative) Urine Nitrate Negative (Negative) Urine Bilirubin Negative (Negative) Urine Urobilinogen 0.2 (<2.0) mg/dL Leukocyte Esterase Rfl Negative (Negative) LAURA/UL 04/25/25 Range/Units 00:42 WBC (4.5-10.0) K/mm3 RBC (4.6-6.20) M/mm3 Hgb (14.0-18.0) g/dL Hct (42.0-52.0) % MCV (80-100) fl MCH (26-34) pg MCHC (32-36) g/dl RDW (11.5-14.5) % Plt Count (150-375) k/mm3 MPV (7.4-10.4) fl Immature Gran % (Auto) (0-0.5) % Neut % (Auto) (45.5-73.1) % Lymph % (Auto) (18.3-44.2) % [place] % (Auto) (2.6-8.5) % Eos % (Auto) (0-4.4) % Baso % (Auto) (0.2-1.2) % Lymph # (Auto) (0.9-3.2) K/mm3 [place] # (Auto) (0.1-0.6) K/mm3 Eos # (Auto) (0-0.3) K/mm3 Baso # (Auto) (0.0-0.1) K/mm3 Abs Immat Gran (auto) (0.00-0.031) K/mm3 Absolute Neuts (auto) (1.3-6.7) K/mm3 Absolute Nucleated RBC (0.0-0.012) K/mm3 Nucleated RBC % (0.0-0.2) % PT (11.1-14.7) Seconds INR APTT (22.3-36.8) Seconds Sodium (137-145) mmol/L Potassium (3.4-5.0) mmol/L Chloride (98-107) mmol/L Carbon Dioxide (22-30) mmol/L Anion Gap (4-12) mmol/L BUN (9-20) mg/dL Creatinine (0.7-1.3) mg/dL Estim Creat Clear Calc ml/min Estimated GFR (59 - ) Glucose (65-110) mg/dL POC Capillary Glucose (65-105) mg/dl Calcium (8.4-10.2) mg/dL Magnesium (1.6-2.3) mg/dL Total Bilirubin (0.2-1.3) mg/dL AST (17-59) U/L ALT (6-50) U/L Alkaline Phosphatase (38-126) U/L Troponin I < 0.012 (0.000-0.034) ng/mL Total Protein (6.3-8.2) g/dL Albumin (3.5-5.1) g/dL Lipase (23-300) U/L Urine Color (Yellow) Urine Appearance (Clear) Urine pH (5.0-9.0) Ur Specific [place] (1.001-1.035) Urine Protein (Negative) mg/dL Urine Glucose (UA) (Negative) mg/dL Urine Ketones (Negative) mg/dL Ur Blood (Man) (Negative) Urine Nitrate (Negative) Urine Bilirubin (Negative) Urine Urobilinogen (<2.0) mg/dL Leukocyte Esterase Rfl (Negative) LAURA/UL Discharge Plan Discharge Clinical Impression: Light headedness Patient Disposition: Home Condition: Stable Instructions: Antibiotic Form, Lightheadedness (ED) Additional Instructions: You were seen emergency department after period of lightheadedness. Please make sure you are drinking plenty of fluids. Please follow-up with your primary care physician for further management. If you develop any new or worsening symptoms please return to the ED for re-evaluation. Patient Language: Welsh Prescriptions: No Action tizanidine 2 mg tablet lisinopril 40 mg tablet 40 mg PO DAILY fluticasone propionate 50 mcg/actuation spray,suspension 2 spray INTRANASAL DAILY atorvastatin 40 mg Tablet 80 mg PO DAILY Qty: 30 0RF Xarelto 20 mg Tablet 20 mg PO DAILY Qty: 30 0RF spironolactone 25 mg Tablet 25 mg PO QAM Qty: 30 0RF pantoprazole 20 mg tablet,delayed release (DR/EC) 20 mg PO QAM 28 Days Qty: 28 0RF aspirin 81 mg Tablet 81 mg PO DAILY carvedilol [Coreg] 3.125 mg tablet 6.25 mg PO Q12HR clopidogrel 75 mg Tablet 75 mg PO Follow-up/Referrals: PHYSICIAN NOT ON STAFF,NONSTAFF [Non-Staff] -
[2024-12-22 01:47] VITALS: BP 160/70; PULSE 66; RESP 17; O2SAT 100
[2024-12-22 01:55] VITALS: BP 160/70; PULSE 66; RESP 17; O2SAT 100
== END 2024-12-22 01:57 | disposition home or self-care (01) ==
PROVIDERS: Emergency Provider Emergency Medicine
DX: R42 Dizziness and giddiness (principal); Z79.82 Long term (current) use of aspirin; I10 Essential (primary) hypertension; E78.49 Other hyperlipidemia; K21.9 Gastro-esophageal reflux disease without esophagitis; Z87.891 Personal history of nicotine dependence; E66.9 Obesity, unspecified; Z68.35 Body mass index [BMI] 35.0-35.9, adult; Z86.73 Personal history of transient ischemic attack (TIA), and cerebral infarction without residual deficits
CPT/HCPCS: 36415; 71045; 80053; 81003; 82948; 83690; 83735; 84484; 85025; 85610; 85730; 93005; 96360; 99284; J7030